=== PATIENT | female | born 1950 | race Caucasian/White ===

== ENCOUNTER 2020-12-04 15:33 | Inpatient (IN) | payer OTHER, MEDICAID, SELFPAY ==
[~2020-12-04] VITALS: Ht 170.2 cm; Wt 60.8 kg
[~2020-12-04 15:33] MED LIST: ALBU-136 IH; Acetaminophen/Hydrocodone Bi PO; DOCU-299 PO; MES60 PO
[2020-12-04 15:36] VITALS: BP 147/78
[2020-12-04] MEDS ORDERED: ALBUTEROL SULFATE/IPRATROPIU 3 ML SOL IH ONE (15:55)
[2020-12-04] MEDS ORDERED: KETOROLAC 30 MG/ML VIAL IVP ONE (15:55)
--- NOTE | 2020-12-04 16:15 | NUR ---
rt at bedside for abg.
--- NOTE | 2020-12-04 16:15 | NUR ---
swabs collected and given to phleb.
--- NOTE | 2020-12-04 16:23 | NUR ---
ATUL, FLU swab collected.
--- NOTE | 2020-12-04 16:29 | NUR ---
see complete assessment.
[2020-12-04 16:37] LABS: BASOPHILS % (AUTO) 0.4 % (0.0-2.0); HEMATOCRIT 32.4 % (36-48); HEMOGLOBIN 10.1 g/dL (12.0-16.0); LYMPHOCYTES # (AUTO) 0.6 K/uL (2.5-16.5); LYMPHOCYTES % (AUTO) 8.1 % (20.5-51.1); MEAN CORPUSCULAR HEMOGLOBIN 22 pg (27-31); MEAN CORPUSCULAR HGB CONC 31 g/dL (33-37); MEAN CORPUSCULAR VOLUME 69.8 fL (80-94); MONOCYTES # (AUTO) 0.1 K/uL (0.8-1.0); NEUTROPHILS # (AUTO) 6.4 K/uL (1.8-7.7); NEUTROPHILS % (AUTO) 90.5 % (42.2-75.2); PLATELET COUNT (AUTO) 282 K/uL (140-450); RED BLOOD CELL COUNT(AUTO) 4.63 MIL/uL (4.20-5.40); RED CELL DISTRIBUTION WIDTH 18.4 % (11.6-13.7); WHITE BLOOD COUNT (AUTO) 7.1 K/uL (4.8-10.8)
--- NOTE | 2020-12-04 16:45 | NUR ---
pt ambulated to bedside comode, steady gait.
--- NOTE | 2020-12-04 16:51 | NUR ---
urine collected and given to phleb in lab.
[2020-12-04 16:59] LABS: LACTATE DEHYDROGENASE 214 U/L (81-234)
[2020-12-04 17:00] LABS: ALBUMIN 2.7 g/dL (3.4-5.0); ANION GAP 9.1 (8-16); CARBON DIOXIDE 30.7 mmol/L (21-32); CREATININE 0.8 mg/dL (0.6-1.3); POTASSIUM 3.8 mmol/L (3.5-5.1); TOTAL BILIRUBIN 0.4 mg/dL (0.0-1.0)
[2020-12-04 17:11] LABS: PROTHROMBIN TIME 9.5 secs (10.8-13.4)
[2020-12-04] MEDS ORDERED: ASPIRIN 325 MG TAB PO ONE (17:20)
[2020-12-04] MEDS ORDERED: NACL 0.9% 1,000 ML IV ONE ×2 (17:20→20:20)
[2020-12-04 17:25] LABS: C-REACTIVE PROTEIN QUANT 0.2 mg/dL (0.0-0.9)
--- NOTE | 2020-12-04 17:34 | NUR ---
PT REPORTS BACK PAIN IS STILL 08/01. DR. GAYTAN NOTIFIED.
[2020-12-04] MEDS ORDERED: ONDANSETRON 4 MG/2 ML VIAL IVP ONE (17:35)
[2020-12-04] MEDS ORDERED: MORPHINE SULFATE 4 MG/ML SYR IVP ONE (17:35)
[2020-12-04 17:40] LABS: APPEARANCE,URINE SL CLOUDY (CLEAR); BILIRUBIN,URINE 1+ (NEGATIVE); BLOOD, URINE TRACE-I (NEGATIVE); COLOR,URINE DARK YELLOW (YELLOW); LEUKOCYTE ESTERASE ,URINE NEGATIVE (NEGATIVE); NITRITE, URINE NEGATIVE (NEGATIVE); UGLUCOSE NEGATIVE (NEGATIVE)
[2020-12-04 17:49] LABS: BARBITURATE, URINE NEGATIVE ng/ml (NEG <=200); BENZODIAZEPINE, URINE POSITIVE ng/mL (NEG <=200); CANNABINOID, URINE NEGATIVE ng/mL (NEG <=50); COCAINE, URINE NEGATIVE ng/mL (NEG <=300); OPIATE, URINE NEGATIVE ng/mL (NEG <=2000); PHENCYCLIDINE SCREEN,URINE NEGATIVE ng/mL (NEG <=25)
[2020-12-04 18:08] LABS: RBC,URINE 0-5 /HPF (0-5); WBC,URINE 0-5 /HPF (0-5)
[2020-12-04 18:09] LABS: URINE AMORPHOUS URATE 1+ /HPF (None Seen)
--- NOTE | 2020-12-04 18:20 | NUR ---
PT TAKEN TO CT VIA RVIRGILIO.
--- NOTE | 2020-12-04 18:45 | NUR ---
PT REPORTING DECREASED PAIN, 5/10
--- NOTE | 2020-12-04 19:13 | NUR ---
PT ENDORSED TO ROMAIN RENE FOR CONTINUITY OF CARE AT THIS TIME.
[2020-12-04] MEDS ORDERED: DILTIAZEM 25 MG/5 ML VIAL IVP ONE (19:20)
--- NOTE | 2020-12-04 19:30 | NUR ---
RECEIVED REPORT FROM EDILBERTO HOYOS FOR CONTINUITY OF CARE.
[2020-12-04] MEDS: NACL 0.9% 1,000 ML IV SCH (20:20)
--- NOTE | 2020-12-04 20:20 | NUR ---
PT LAYING IN BED IN NO ACUTE DISTRESS NOTED BREATHING EVEN AND UNLABORED AT THIS TIME. HEART RATE AT 85 WITH RAPID ACCELARATIONS OF RATE. RR 19. ON CONTINUES MONITORING. STATES SHE HAS 5/10 TOLERABLE LUMBOSACRAL PAIN DOES NOT REQUEST MEDS AT THIS TIME. WILL CONT TO MONITOR FOR ANY CHANGES.
[2020-12-04] MEDS ORDERED: DOCUSATE SODIUM 100 MG GELCAP PO PRN (20:55)
[2020-12-04] MEDS ORDERED: POTASSIUM CHLORIDE 10 MEQ TABER PO PRN (20:55)
[2020-12-04] MEDS ORDERED: PROMETHAZINE DM 6.25/15MG-5ML ORASYR PO PRN (20:55)
[2020-12-04] MEDS ORDERED: ACETAMINOPHEN 325 MG TAB PO PRN (20:55)
[2020-12-04] MEDS ORDERED: ZOLPIDEM 5 MG TAB PO PRN (20:55)
[2020-12-04] MEDS ORDERED: ONDANSETRON 4 MG/2 ML VIAL IM/IVP PRN (20:55)
[2020-12-04] MEDS ORDERED: NITROGLYCERIN 0.4 MG TAB SL PRN (20:55)
[2020-12-04] MEDS: METOPROLOL 25 MG TAB PO SCH (21:00)
[2020-12-04] MEDS ORDERED: CARV6.25 PO (21:01)
[2020-12-04] MEDS ORDERED: ALBU-118 INH (21:01)
[2020-12-04] MEDS ORDERED: MES60 PO (21:01)
[2020-12-04 21:15] LABS: BASOPHILS % (AUTO) 0.1 % (0.0-2.0); HEMATOCRIT 32.7 % (36-48); HEMOGLOBIN 10.1 g/dL (12.0-16.0); LYMPHOCYTES # (AUTO) 0.6 K/uL (2.5-16.5); LYMPHOCYTES % (AUTO) 7.6 % (20.5-51.1); MEAN CORPUSCULAR HEMOGLOBIN 22 pg (27-31); MEAN CORPUSCULAR HGB CONC 31 g/dL (33-37); MEAN CORPUSCULAR VOLUME 70.9 fL (80-94); MONOCYTES # (AUTO) 0.1 K/uL (0.8-1.0); NEUTROPHILS # (AUTO) 6.7 K/uL (1.8-7.7); NEUTROPHILS % (AUTO) 91.3 % (42.2-75.2); PLATELET COUNT (AUTO) 293 K/uL (140-450); RED BLOOD CELL COUNT(AUTO) 4.61 MIL/uL (4.20-5.40); RED CELL DISTRIBUTION WIDTH 18.4 % (11.6-13.7); WHITE BLOOD COUNT (AUTO) 7.4 K/uL (4.8-10.8)
--- NOTE | 2020-12-04 21:25 | NUR ---
PT WAS ASSISTED TO BEDSIDE COMMODE, TOLERATED WELL. PLACED ON IVF RUNNING AT 60 ML PER HR.
[2020-12-04 21:35] LABS: CHOL/HDL RATIO 2.6 (1-4.5); FREE T4 (FREE THYROXINE) 1.16 ng/dL (0.76-1.46); MAGNESIUM 2.1 mg/dL (1.8-2.4); PHOSPHORUS 3.5 mg/dL (2.5-4.9); THYROID STIMULATING HORMONE 0.2 uIU/mL (0.34-3.74)
[2020-12-04] MEDS ORDERED: PYRIDOSTIGMINE 60 MG TAB PO SCH (22:00)
[2020-12-04] MEDS ORDERED: cefTRIAXone 1,000 MG VIAL ONE (22:22)
[2020-12-04] MEDS: DILTIAZEM 30 MG TAB PO SCH (22:35)
--- NOTE | 2020-12-04 22:45 | NUR ---
Patient will be admitted to care of DR. FELDMAN. Admited to TELEMETRY. Will go to room 111B. Belongings list completed. Report given to GÉNESIS RN FOR CONTINUITY OF CARE. ALL COVID PRECAUTIONS IN PLACE.
--- NOTE | 2020-12-04 23:00 | NUR ---
ADMITTED 70 Y/O FEMALE, FROM HOME, AOX4, ON ROOM AIR, AMBULATE W/ASSIST, INTACT SKIN, MRSA TAKEN, V/S TAKEN, WNL, ORIENTED TO ROOM, SAFETY MEASURES IN PLACE, CALL LIGHT WITHIN REACH.
[2020-12-04] MEDS: HYDROcodone/APAP 7.5/325 MG 1 TAB PO PRN (23:37)
--- NOTE | 2020-12-05 01:15 | NUR ---
PAGED DR. FELDMAN FOR TROP 0.163, AWAITING CALL BACK. PT IS NOT IN DISTRESS.
--- NOTE | 2020-12-05 01:45 | NUR ---
LEFT VOICEMAIL TO DR. FELDMAN.
--- NOTE | 2020-12-05 03:30 | NUR ---
DR. FELDMAN ORDERED LOVENOX SQ BID AND GIVE ONCE NOW. NOTED AND CARRIED OUT. PT IS NOT IN DISTRESS, CALL LIGHT WITHIN REACH.
[2020-12-05] MEDS ORDERED: LOVENOX 1MG/KG Q12H SUBQ ONE (03:35)
[2020-12-05] MEDS ORDERED: ENOXAPARIN 60 MG/0.6 ML SYR SUBQ SCH ×2 (03:40→09:00)
[2020-12-05 04:00] VITALS: BP 109/72
[2020-12-05] MEDS: HYDROcodone/APAP 7.5/325 MG 1 TAB PO PRN ×3 (06:27→14:52)
--- NOTE | 2020-12-05 07:30 | NUR ---
PT STABLE, NO SOB, NO DISTRESS, NO ACUTE CHANGES THE WHOLE SHIFT, BEDSIDE ENDORSEMENT GIVEN TO AM SHIFT RN FOR CONTINUITY OF CARE.
--- NOTE | 2020-12-05 07:30 | NUR ---
RECEIVED ENDORSEMENT FROM DIRECTOR OF ONLINE EDUCATION, Awake,alert, orientedx4, breathing spontaneously at room air, not in distress, WITH ONGOING IV FLUID WITH 0.9% NS AT 60ML/HOUR AT RT AC G 20 IV CANNULA NOTED. SAFETY MEASURESN PLACE AND CONTINUE MONITOR
[2020-12-05 08:00] VITALS: BP 105/74
[2020-12-05 08:46] LABS: BASOPHILS % (AUTO) 0.3 % (0.0-2.0); EOSINOPHILS % (AUTO) 0.2 % (0.0-4.0); HEMATOCRIT 28.2 % (36-48); HEMOGLOBIN 8.8 g/dL (12.0-16.0); LYMPHOCYTES # (AUTO) 1.1 K/uL (2.5-16.5); LYMPHOCYTES % (AUTO) 22.5 % (20.5-51.1); MEAN CORPUSCULAR HEMOGLOBIN 22 pg (27-31); MEAN CORPUSCULAR HGB CONC 31 g/dL (33-37); MEAN CORPUSCULAR VOLUME 70.7 fL (80-94); MONOCYTES # (AUTO) 0.5 K/uL (0.8-1.0); NEUTROPHILS # (AUTO) 3.4 K/uL (1.8-7.7); PLATELET COUNT (AUTO) 181 K/uL (140-450); RED BLOOD CELL COUNT(AUTO) 3.99 MIL/uL (4.20-5.40); RED CELL DISTRIBUTION WIDTH 18.3 % (11.6-13.7)
[2020-12-05 08:57] LABS: ANION GAP 10.4 (8-16); CARBON DIOXIDE 29.3 mmol/L (21-32); CREATININE 0.7 mg/dL (0.6-1.3); POTASSIUM 3.7 mmol/L (3.5-5.1)
--- NOTE | 2020-12-05 09:14 | NUR ---
PATIENT HAS BEEN SCREENED AND CATEGORIZED MODERATE NUTRITION RISK. PATIENT WILL BE SEEN WITHIN 3-5 DAYS OF ADMISSION. 12/07/20 12/09/[address]
--- NOTE | 2020-12-05 09:17 | NUR ---
TROP I- 0.121, DR FELDMAN MADE AWARE TRENDING DOWN
[2020-12-05] MEDS: DILTIAZEM 30 MG TAB PO SCH ×3 (09:56→17:08)
[2020-12-05] MEDS: ECOTRIN 81 MG TABEC PO SCH (09:56)
[2020-12-05] MEDS: METOPROLOL 25 MG TAB PO SCH (09:57)
[2020-12-05] MEDS: PANTOPRAZOLE 40 MG TABEC PO SCH (09:57)
[2020-12-05] MEDS: lisinopriL 5 MG TAB PO SCH (09:58)
--- NOTE | 2020-12-05 10:01 | NUR ---
FULLY AWAKE AND ALERT, DUE MEDICATION GIVEN. APPARENTLY COMPLAINED OF BACK PAIN 03/31, NORCO 1 TAB ORDERED PRN GIVEN
--- NOTE | 2020-12-05 10:10 | NUR ---
SOCIAL WORK NOTE: SW WAS UNABLE TO MEET PATIENT AT BEDSIDE. SW CONTACTED PATIENT'S DAUGHTER SUSHMA LANDIN [phone] TO COMPLETE ASSESSMENT. SW LEFT VM AND WILL FOLLOW UP.
[2020-12-05 12:00] VITALS: BP 91/56
[2020-12-05] MEDS: NACL 0.9% 1,000 ML IV SCH (13:10)
--- NOTE | 2020-12-05 13:12 | NUR ---
FULLY AWAKE AND ALERT, DUE MEDICATION GIVEN
--- NOTE | 2020-12-05 14:51 | NUR ---
COMPLAINED OF BACK PAIN 05/01, NORCO 1 TAB GIVEN ORDERED PRN
--- NOTE | 2020-12-05 15:43 | NUR ---
DC PLANNIN YRS OLD FEMALE PATIENT WAS ADMITTED FROM HOME WITH A DX OF ELEVATED TROPONIN, CHEST PAIN AND NEW ONSET OF A-FIB. TROP 0.163 , 0.121 . COVID TEST RAPID NEGATIVE. ADMINISTERED ROCEPHIN IV ABX. CONSULTED WITH NEUROLOGIST AND STAGE TECHNICIAN DC PLAN TO GO HOME WHEN STABLE CM TO FOLLOW
[2020-12-05 16:00] VITALS: BP 92/60
--- NOTE | 2020-12-05 16:20 | NUR ---
TRANSFERRED TO ROOM A126B, NOT IN DISTRESS NOTED
[2020-12-05] MEDS: ATORVASTATIN 20 MG TAB PO SCH (17:08)
[2020-12-05] MEDS: PYRIDOSTIGMINE 60 MG TAB PO SCH ×2 (17:09→21:00)
--- NOTE | 2020-12-05 18:01 | NUR ---
FULLY AWAKE AND ALERT, DINNER SERVED
--- NOTE | 2020-12-05 19:31 | NUR ---
ENDORSED TO MEDICAL TECHNOLOGIST MICROBIOLOGY IN STABLE CONDITION FOR CONTINUITY OF CARE
[2020-12-05 20:00] VITALS: BP 112/56
[2020-12-05] MEDS: ENOXAPARIN 60 MG/0.6 ML SYR SUBQ SCH (21:00)
[2020-12-05] MEDS: carvediloL 6.25 MG TAB PO SCH (21:00)
[2020-12-05] MEDS: AMIODARONE 200 MG TAB PO SCH (21:00)
--- NOTE | 2020-12-05 22:30 | NUR ---
C/O HEADACHE AND BACK PAIN - HAS ELEVATEC TROPONIN - A FIB ON TELE MONITOR . O2 SAT WNL . WILL REFER TO DR. FELDMAN . WILL INFORM DR. FELDMAN COREG AND CORDARONE NOT GIVEN DUE TO LOW DBP .
--- NOTE | 2020-12-05 23:00 | NUR ---
NARCO GIVEN Addendum: 12/06/20 at 0614 by Tatyana James RN PER DR. FELDMAN GIVE NITRO STAT BUT PT. REFUSED - PT. DESCRIBING AGAIN THE CHAC . OF PAIN SHE SAID THE CHEST PAIN DOES NOT BOTHERS HER A LOT BUT THE BACK PAIN SHE SAID IT IS ALMOST CHRONIS PAIN BECAUSE SHE HAD FALL HX . - WILL INFORM DR. FELDMAN ABOUT THE REFUSAL OF NITROSTAT.
[2020-12-06] VITALS: BP 110/60
--- NOTE | 2020-12-06 | NUR ---
FOR STAT EKG AND TROPONIN ORDERED BY DR. FELDMAN . WILL RELAY THE RESULT
[2020-12-06 04:00] VITALS: BP 111/60
--- NOTE | 2020-12-06 04:00 | NUR ---
C/O BACK PAIN - ON TEL EMONITOR - O2 SAT WNL - WILL MEDICATE - AT THIS TIME RELAYED TO DR. FELDMAN THE RESULT OF RPT. EKG AND ALSO INFORMED HIM POT. REFUSED FOR NITRO STAT - NO RESPONSE TO DR. FELDMAN - RPRT TROPONIN - TRENDING DOWN .
[2020-12-06] MEDS: HYDROcodone/APAP 7.5/325 MG 1 TAB PO PRN ×5 (04:43→22:07)
--- NOTE | 2020-12-06 06:00 | NUR ---
NO COMPLAIN MADE - HE SAID THE PAIN IS REDUCED . ON TELE MONITOR - CALL LIGHT WITHIN REACH .
[2020-12-06] MEDS: NACL 0.9% 1,000 ML IV SCH ×2 (06:20→23:00)
[2020-12-06 06:24] LABS: BASOPHILS % (AUTO) 0.3 % (0.0-2.0); EOSINOPHILS % (AUTO) 0.4 % (0.0-4.0); HEMATOCRIT 29.5 % (36-48); HEMOGLOBIN 9.1 g/dL (12.0-16.0); LYMPHOCYTES # (AUTO) 1.3 K/uL (2.5-16.5); LYMPHOCYTES % (AUTO) 26.2 % (20.5-51.1); MEAN CORPUSCULAR HEMOGLOBIN 22 pg (27-31); MEAN CORPUSCULAR HGB CONC 31 g/dL (33-37); MEAN CORPUSCULAR VOLUME 70.9 fL (80-94); MONOCYTES # (AUTO) 0.4 K/uL (0.8-1.0); MONOCYTES % (AUTO) 7.7 % (1.7-9.3); NEUTROPHILS # (AUTO) 3.4 K/uL (1.8-7.7); NEUTROPHILS % (AUTO) 65.4 % (42.2-75.2); PLATELET COUNT (AUTO) 178 K/uL (140-450); RED BLOOD CELL COUNT(AUTO) 4.15 MIL/uL (4.20-5.40); RED CELL DISTRIBUTION WIDTH 18.1 % (11.6-13.7); WHITE BLOOD COUNT (AUTO) 5.1 K/uL (4.8-10.8)
[2020-12-06 06:45] LABS: CREATININE 0.6 mg/dL (0.6-1.3); POTASSIUM 3.8 mmol/L (3.5-5.1)
--- NOTE | 2020-12-06 07:23 | NUR ---
ENDORSED - PT - STABLE .
--- NOTE | 2020-12-06 07:24 | NUR ---
RECEIVED ENDORSEMENT FROM PRESSER ALL AROUND, AWAKE, ALERT,[id number], BREATHING SPONTANEOUSLY AT ROOM AIR, WITH ONGOING IV FLUID WITH 0.9% NS AT 60ML/HOUR AT RT AC G 20 IV CANNULA NOTED. SAFETY MEASURES IN PLACE AND CONTINUE MONITOR
[2020-12-06 07:33] LABS: ANION GAP 9.7 (8-16); CARBON DIOXIDE 31.1 mmol/L (21-32)
[2020-12-06 08:00] VITALS: BP 103/80
[2020-12-06 08:46] LABS: T4 (THYROXINE) 6.6 ug/dL (4.5-12.0)
[2020-12-06] MEDS: carvediloL 6.25 MG TAB PO SCH ×2 (08:46→22:02)
[2020-12-06] MEDS: ENOXAPARIN 60 MG/0.6 ML SYR SUBQ SCH (08:47)
[2020-12-06] MEDS: PANTOPRAZOLE 40 MG TABEC PO SCH (08:48)
[2020-12-06] MEDS: DILTIAZEM 30 MG TAB PO SCH ×3 (08:49→17:51)
[2020-12-06] MEDS: predniSONE 20 MG TAB PO SCH (08:49)
[2020-12-06] MEDS: PYRIDOSTIGMINE 60 MG TAB PO SCH ×4 (08:51→22:02)
[2020-12-06] MEDS: CALCIUM CARB/VIT-D 500 MG/200 IU 1 TAB PO SCH ×3 (08:52→17:44)
[2020-12-06] MEDS: ECOTRIN 81 MG TABEC PO SCH (08:53)
[2020-12-06] MEDS: AMIODARONE 200 MG TAB PO SCH ×2 (08:53→22:01)
[2020-12-06] MEDS: lisinopriL 5 MG TAB PO SCH (08:54)
--- NOTE | 2020-12-06 08:55 | NUR ---
FULLY AWAKE AND ALERT, DUE MEDICATION GIVEN, APPARENTLY COMPLAINED OF BACK PAIN 07/01, NORCO 1 TAB ORDERED PRN GIVEN
--- NOTE | 2020-12-06 11:43 | NUR ---
ECHO DONE AT BEDSIDE AND SPINE XRAY DONE
[2020-12-06 12:00] VITALS: BP 111/65
--- NOTE | 2020-12-06 13:24 | NUR ---
FULL AWAKE AND ALERT, COMPLAINED OF BACK PAIN 07/01 NORCO 1 TAB ORDERED PRN AND DUE MEDICATION GIVEN
[2020-12-06 16:00] VITALS: BP 101/56
--- NOTE | 2020-12-06 16:48 | NUR ---
VITAL SIGNS STABLE, APPARENTLY ASLEEP NOT IN DISTRESS NOTED
--- NOTE | 2020-12-06 17:45 | NUR ---
COMPLAINED OF BACK PAIN 05/31, NORCO 1 TAB ORDERED PRN AND DUE MEDICATION GIVEN
[2020-12-06] MEDS: ATORVASTATIN 20 MG TAB PO SCH (17:48)
[2020-12-06] MEDS ORDERED: MORPHINE SULFATE 2 MG/ML SYR IVP PRN (17:55)
--- NOTE | 2020-12-06 18:45 | NUR ---
MINIMAL PAIN CLAIMED, DINNER SERVED
--- NOTE | 2020-12-06 19:00 | NUR ---
PATIENT RECEIVED IN BED ALERT AND RESPONSIVE. PATIENT VERBALIZED NEEDS AND CONCERNS TO RN. DISCUSSED WITH PATIENT RN PLAN OF CARE. DISCUSSED FALL AND SAFETY INTERVENTIONS, MEDICATION REGIMEN AND RN PLAN OF CARE. PATIENT RECEPTIVE TO RN PLAN OF CARE. VSS. NO ACUTE DISTRESS NOTED.
--- NOTE | 2020-12-06 19:30 | NUR ---
ENDORSED TO PRIMARY CARE PEDIATRICIAN IN STABLE CONDITION FOR CONTINUITY OF CARE
[2020-12-06 20:00] VITALS: BP 95/60
[2020-12-07] VITALS: BP 90/66
--- NOTE | 2020-12-07 | NUR ---
Patient sleeping during rounding. Fall and safety precautions maintained. VSS. Medications administered as ordered. No acute distress noted.
[2020-12-07 04:00] VITALS: BP 100/56
--- NOTE | 2020-12-07 04:00 | NUR ---
Patient sleeping during rounding, easily aroused. VSS, No acute distress noted
[2020-12-07] MEDS: HYDROcodone/APAP 7.5/325 MG 1 TAB PO PRN ×3 (06:15→15:43)
--- NOTE | 2020-12-07 07:25 | NUR ---
RECEIVED PATIENT FROM NIGHT NURSE. PATIENT IN BED SLEEPING, CHEST NOTED RISING. NO ACUTE S/S DISTRESS AT THIS TIME. RAC 20G INFUSING NS 60ML/HR. HOB ELEVATED. SAFETY MEASURES IN PLACE. CALL LIGHT WITHIN REACH. WILL CONTINUE TO MONITOR.
[2020-12-07 08:00] VITALS: BP 114/72
[2020-12-07] MEDS: ECOTRIN 81 MG TABEC PO SCH (09:52)
[2020-12-07] MEDS: PANTOPRAZOLE 40 MG TABEC PO SCH (09:52)
[2020-12-07] MEDS: ENOXAPARIN 60 MG/0.6 ML SYR SUBQ SCH (09:52)
[2020-12-07] MEDS: AMIODARONE 200 MG TAB PO SCH (09:53)
[2020-12-07] MEDS: carvediloL 6.25 MG TAB PO SCH (09:53)
[2020-12-07] MEDS: lisinopriL 5 MG TAB PO SCH (09:53)
[2020-12-07] MEDS: CALCIUM CARB/VIT-D 500 MG/200 IU 1 TAB PO SCH ×3 (09:53→17:12)
[2020-12-07] MEDS: predniSONE 20 MG TAB PO SCH (09:54)
[2020-12-07] MEDS: DILTIAZEM 30 MG TAB PO SCH ×3 (09:54→17:12)
[2020-12-07] MEDS: PYRIDOSTIGMINE 60 MG TAB PO SCH ×3 (09:54→17:12)
--- NOTE | 2020-12-07 10:15 | NUR ---
PATIENT IN BED AWAKE AND ALERT. MORNING ROUTINE MEDICATIONS GIVEN. PATIENT TOLERATED WELL. RAC 20G INFUSING NS 60ML/HR. PATIENT C/O PAIN AND WILL MEDICATE APPROPRIATELY. RESP EVEN AND UNLABORED ON ROOM AIR. NO NOTED ACUTE S/S DISTRESS AT THIS TIME. PLAN OF CARE DISCUSSED. PATIENT VERBALIZED UNDERSTANDING. CALL LIGHT WITHIN REACH. WILL CONTINUE TO MONITOR.
[2020-12-07 12:00] VITALS: BP 95/54
--- NOTE | 2020-12-07 12:38 | NUR ---
PATIENT IN BED EATING LUNCH. NO NOTED ACUTE S/S DISTRESS. ABLE TO MAKE NEEDS KNOWN. CALL LIGHT WITHIN REACH. WILL CONTINUE TO MONITOR.
[2020-12-07] MEDS ORDERED: APIX2.5 PO (13:17)
[2020-12-07] MEDS ORDERED: MES60 PO (13:17)
[2020-12-07] MEDS ORDERED: PRED20TA5 PO (13:17)
[2020-12-07] MEDS ORDERED: AMIO200T66 PO (13:17)
[2020-12-07] MEDS ORDERED: PANT40EC PO (13:17)
[2020-12-07] MEDS ORDERED: HYDR-5080 PO (13:20)
[2020-12-07] MEDS: NACL 0.9% 1,000 ML IV SCH (15:40)
--- NOTE | 2020-12-07 15:45 | NUR ---
NORCO GIVEN FOR PAIN. PATIENT AWAKE AND ALERT. ABLE TO FOLLOW COMMANDS. NEEDS ARE MET. CALL LIGHT WITHIN REACH. WILL CONTINUE TO MONITOR.
[2020-12-07 16:00] VITALS: BP 109/52
[2020-12-07] MEDS: ATORVASTATIN 20 MG TAB PO SCH (17:12)
[2020-12-07 18:14] VITALS: BP 109/52
--- NOTE | 2020-12-07 19:20 | NUR ---
PATIENT LEFT DISCHARGED HOME WITH FAMILY. PATIENT LEFT WITH ALL PERSONAL BELONGINGS. DISCHARGE INSTRUCTIONS GIVEN, PATIENT VERBALIZED UNDERSTANDING. PATIENT LEFT IN STABLE CONDITION.
== END 2020-12-07 19:20 | disposition home or self-care (01) | DRG 309 ==
LOC: MED 15:33 → MTU 20:19 → MMU 12-05 16:52
PROVIDERS: ADMIT Family Medicine; ATTEND Family Medicine
DX: I48.91 Unspecified atrial fibrillation (principal); I24.8 Other forms of acute ischemic heart disease; G70.00 Myasthenia gravis without (acute) exacerbation; Z20.822 Contact with and (suspected) exposure to COVID-19; I10 Essential (primary) hypertension; Z60.2 Problems related to living alone; J44.9 Chronic obstructive pulmonary disease, unspecified; E78.2 Mixed hyperlipidemia; M54.9 Dorsalgia, unspecified; K25.9 Gastric ulcer, unspecified as acute or chronic, without hemorrhage or perforation; Z79.899 Other long term (current) drug therapy; Z85.41 Personal history of malignant neoplasm of cervix uteri; Z90.710 Acquired absence of both cervix and uterus; Z80.1 Family history of malignant neoplasm of trachea, bronchus and lung; E03.9 Hypothyroidism, unspecified
CPT/HCPCS: 36415; 36600; 71045; 71275; 72072; 80048; 80053; 80305; 81001; 82150; 82550; 82728; 82803; 83036; 83605; 83615; 83690; 83735; 83880; 84100; 84436; 84439; 84443; 84479; 84484; 85025; 85379; 85384; 85610; 85730; 86140; 87040; 87081; 87086; 87804; 93005; 94640; 96374; 97110; 97116; 97161-GP; 97530; 99291; J0696; J1650; J1885; J2270; J2405; J3490; J7030; J7060; J7512; Q9967

== ENCOUNTER 2021-01-06 13:29 | Inpatient (IN) | payer OTHER, MEDICAID, SELFPAY ==
[~2021-01-06] VITALS: Ht 172.7 cm; Wt 63.0 kg
[~2021-01-06 13:29] MED LIST changes: +ALBU-118 INH; +AMIO200T66 PO; +APIX2.5 PO; +CARV6.25 PO; +HYDR-5080 PO; +PANT40EC PO; +PRED20TA5 PO
[2021-01-06 13:43] VITALS: BP 133/91
--- NOTE | 2021-01-06 13:59 | NUR ---
PATIENT W/C ASSISTED TO BED 9
[2021-01-06] MEDS ORDERED: HYDROcodone/APAP 5/325 MG 1 TAB TAB PO STA (15:27)
[2021-01-06] MEDS ORDERED: ASPIRIN 325 MG TAB PO STA (15:27)
[2021-01-06 15:47] LABS: BASOPHILS % (AUTO) 0.3 % (0.0-2.0); HEMATOCRIT 32.6 % (36-48); HEMOGLOBIN 10.2 g/dL (12.0-16.0); LYMPHOCYTES # (AUTO) 0.3 K/uL (2.5-16.5); LYMPHOCYTES % (AUTO) 5.6 % (20.5-51.1); MEAN CORPUSCULAR HEMOGLOBIN 22 pg (27-31); MEAN CORPUSCULAR HGB CONC 31 g/dL (33-37); MEAN CORPUSCULAR VOLUME 69.3 fL (80-94); MONOCYTES % (AUTO) 0.9 % (1.7-9.3); NEUTROPHILS # (AUTO) 5.1 K/uL (1.8-7.7); NEUTROPHILS % (AUTO) 93.2 % (42.2-75.2); PLATELET COUNT (AUTO) 224 K/uL (140-450); RED BLOOD CELL COUNT(AUTO) 4.71 MIL/uL (4.20-5.40); RED CELL DISTRIBUTION WIDTH 19.2 % (11.6-13.7); WHITE BLOOD COUNT (AUTO) 5.5 K/uL (4.8-10.8)
[2021-01-06] MEDS ORDERED: NITROGLYCERIN 0.4 MG TAB SL ONE (15:55)
--- NOTE | 2021-01-06 16:00 | NUR ---
Patient taken to xray via gurney
[2021-01-06 16:03] LABS: ALBUMIN 2.8 g/dL (3.4-5.0); ANION GAP 8.4 (8-16); CARBON DIOXIDE 32.5 mmol/L (21-32); CREATININE 0.7 mg/dL (0.6-1.3); POTASSIUM 3.9 mmol/L (3.5-5.1); TOTAL BILIRUBIN 0.4 mg/dL (0.0-1.0)
[2021-01-06] MEDS ORDERED: MORPHINE SULFATE 4 MG/ML SYR IVP STA (17:20)
[2021-01-06] MEDS ORDERED: ONDANSETRON 4 MG/2 ML VIAL IVP STA (17:20)
[2021-01-06] MEDS ORDERED: LORazepam 2 MG/ML VIAL IM/IVP PRN (17:50)
[2021-01-06] MEDS ORDERED: ONDANSETRON 4 MG/2 ML VIAL IVP PRN (17:50)
[2021-01-06] MEDS ORDERED: ZOLPIDEM 5 MG TAB PO PRN (17:50)
[2021-01-06] MEDS ORDERED: DOCUSATE SODIUM 100 MG GELCAP PO PRN (17:50)
[2021-01-06] MEDS ORDERED: ACETAMINOPHEN 325 MG TAB PO PRN (17:50)
[2021-01-06 18:09] LABS: PROTHROMBIN TIME 9.5 secs (10.8-13.4)
[2021-01-06 18:20] LABS: FREE T4 (FREE THYROXINE) 1.16 ng/dL (0.76-1.46); MAGNESIUM 2.1 mg/dL (1.8-2.4); PHOSPHORUS 3.7 mg/dL (2.5-4.9); THYROID STIMULATING HORMONE 0.26 uIU/mL (0.34-3.74)
--- NOTE | 2021-01-06 19:23 | NUR ---
HAND-OFF REPORT GIVEN TO ELIDIA HOYOS FOR CONTINUATION OF NURSING CARE
--- NOTE | 2021-01-06 19:23 | NUR ---
PT WAS FOUND AWAKE IN SEMI-DENT'S POSITION IN BED. PT STATES NO MEDICAL COMPLAINTS AND NO DISTRESS. BED IS LOCKED IN LOWEST POSITION WITH 2 SIDE RAILS UP FOR SAFETY.
--- NOTE | 2021-01-06 19:23 | NUR ---
RECEIVED TRANSFER OF CARE REPORT FROM SLIM HOYOS FOR CONTINUATION OF CARE.
--- NOTE | 2021-01-06 19:23 | NUR ---
Patient will be admitted to care of DR PETERSON. Admited to TELEMETRY. Will go to room 120A. Belongings list completed. Report to ALYX HOYOS.
--- NOTE | 2021-01-06 19:54 | NUR ---
RECEIVED REPORT FROM ELIDIA HOYOS. PT BROUGHT IN VIA [place] AMBULATED FROM [place] TO BED WITH UNSTEADY GAIT WITH NURSE ASSIST. PT WITH INCREASED SOB D/T ACTIVITY. PT IS ON 4L NC SAT WELL 96% LUNG SOUNDS ARE WITH MINIMAL WHEEZING. PT IS AAOX4 FROM HOME. C/O SOB. WAS PREVIOUSLY IN HOSPITAL X 1 MO AGO FOR C/C SOB. SKIN IS INTACT WITH SOME SCRATCHES ON BUE FROM HER DOGS ALREADY SCABBED. NO EDEMA NOTED. ABD IS SOFT. BOWEL SOUNDS ACTIVE X4. LBM X 3 DAYS AGO PER PT HAS NOT BEEN EATING WELL D/T SOB AND TROUBLE SWALLOWING FROM HER HX OF MYESTHESIA GRAVIS. MRSA SWAB OBTAIN. POC DISCUSSED WITH PT. IV ON LAC 20G CONNECTED IVF PER ORDERS. ORIENTED PT TO ROOM,STAFF, AND CALL LIGHT. OBTAINED BEDSIDE COMMODE FOR PT. EDUCATED PT TO CALL FOR ASSISTANCE PT VERBALIZED UNDERSTANDING. BED ALARM ON. ALL SAFETY MEASURES ARE IN PLACE. WILL CONTINUE TO MONITOR.
--- NOTE | 2021-01-06 19:56 | NUR ---
PT WAS TRANSFERRED TO ROOM 120A. RECEIVING NURSE ALYX RN WAS AT BEDSIDE.
[2021-01-06 20:00] VITALS: BP 122/89
[2021-01-06] MEDS: NACL 0.9% 1,000 ML IV SCH (20:07)
[2021-01-06] MEDS: MORPHINE SULFATE 2 MG/ML SYR IVP PRN (20:14)
--- NOTE | 2021-01-06 21:28 | NUR ---
PT RESTING IN BED TALKING ON CELLPHONE. NO S/S OF DISTRESS. BED ALARM ON.
[2021-01-07] VITALS: BP 143/86
--- NOTE | 2021-01-07 | NUR ---
VITAL SIGNS ARE WITHIN NORMAL LIMITS. GAVE PT TEA PER REQUEST. ALL NEEDS MET. CALL LIGHT IS WITHIN REACH.
[2021-01-07] MEDS: MORPHINE SULFATE 2 MG/ML SYR IVP PRN ×5 (01:15→18:27)
--- NOTE | 2021-01-07 01:15 | NUR ---
ADMIN PRN MORPHINE FOR SEVERE BACK PAIN 10/10 PT TOLERATED WELL. ALL NEEDS MET. CALL LIGHT IS WITHIN REACH.
--- NOTE | 2021-01-07 02:31 | NUR ---
ROUNDS MADE. PT APPEARS TO BE SLEEPING. CHEST RISE AND FALL NOTED. CALL LIGHT IS WITHIN REACH.
[2021-01-07 04:00] VITALS: BP 133/72
--- NOTE | 2021-01-07 04:00 | NUR ---
VITAL SIGNS ARE WITHIN NORMAL LIMITS. ALL SAFETY MEASURES ARE IN PLACE. CALL LIGHT IS WITHIN REACH
--- NOTE | 2021-01-07 05:13 | NUR ---
C/C BACK PAIN 10/10 ADMIN PRN MORPHINE. PT TOLERATED WELL. ALL NEEDS MET. CALL LIGHT IS WITHIN REACH.
[2021-01-07 06:00] LABS: BASOPHILS % (AUTO) 0.1 % (0.0-2.0); EOSINOPHILS % (AUTO) 0.1 % (0.0-4.0); HEMATOCRIT 27.7 % (36-48); HEMOGLOBIN 8.6 g/dL (12.0-16.0); LYMPHOCYTES # (AUTO) 0.9 K/uL (2.5-16.5); LYMPHOCYTES % (AUTO) 23.4 % (20.5-51.1); MEAN CORPUSCULAR HEMOGLOBIN 22 pg (27-31); MEAN CORPUSCULAR HGB CONC 31 g/dL (33-37); MONOCYTES # (AUTO) 0.4 K/uL (0.8-1.0); MONOCYTES % (AUTO) 9.1 % (1.7-9.3); NEUTROPHILS # (AUTO) 2.6 K/uL (1.8-7.7); NEUTROPHILS % (AUTO) 67.3 % (42.2-75.2); PLATELET COUNT (AUTO) 144 K/uL (140-450); RED BLOOD CELL COUNT(AUTO) 3.95 MIL/uL (4.20-5.40); RED CELL DISTRIBUTION WIDTH 19.1 % (11.6-13.7); WHITE BLOOD COUNT (AUTO) 3.9 K/uL (4.8-10.8)
[2021-01-07 06:15] LABS: ANION GAP 4.4 (8-16); CARBON DIOXIDE 33.7 mmol/L (21-32); CREATININE 0.6 mg/dL (0.6-1.3); POTASSIUM 3.1 mmol/L (3.5-5.1)
[2021-01-07 06:17] LABS: MAGNESIUM 1.8 mg/dL (1.8-2.4); PHOSPHORUS 3.3 mg/dL (2.5-4.9)
[2021-01-07] MEDS: NACL 0.9% 1,000 ML IV SCH ×3 (06:37→23:52)
--- NOTE | 2021-01-07 07:29 | NUR ---
GAVE BEDSIDE REPORT TO DAY RN. PT ENDORSED IN STABLE CONDITION.
--- NOTE | 2021-01-07 07:45 | NUR ---
RECEIVED BEDSIDE REPORT FROM NIGHTSHIFT NURSE FOR CONTINUITY OF CARE.
[2021-01-07 08:00] VITALS: BP 145/63
[2021-01-07] MEDS ORDERED: POTASSIUM CHLORIDE 40 MEQ, LIDOCAINE MPF 1% 25 MG in NACL 0.9% 250 ML IV SCH (09:00)
--- NOTE | 2021-01-07 09:29 | NUR ---
PATIENT HAS BEEN SCREENED AND CATEGORIZED HIGH NUTRITION RISK. PATIENT WILL BE SEEN WITHIN 1-2 DAYS OF ADMISSION. 01/07/21-01/08/[address]
--- NOTE | 2021-01-07 09:35 | NUR ---
ADMINISTERED PRESCRIBED MEDS AND PRN MEDS FOR 8/10 PAIN PER MD ORDER. PATIENT TOLERATED WELL. MEDICATION EDUCATION PROVIDED. PATIENT VERBALIZED UNDERSTANDING. SAFETY MEASURES IN PLACE. WILL CONTINUE TO MONITOR.
--- NOTE | 2021-01-07 11:10 | NUR ---
NIF completed. -26 cm H20 via air cushion mask.
[2021-01-07 12:00] VITALS: BP 137/89
--- NOTE | 2021-01-07 12:40 | NUR ---
DC PLANNIN YRS OLD FEMALE PATIENT WAS ADMITTED FROM HOME WITH A DX OF CHEST PAIN. 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 PT REGULARLY RECEIVES IVIG FOR HER MYESTHESIA GRAVIS. CONSULTED WITH NEUROLOGIST. CALLED [facility] TO TRANSFER TO CONTRACTED FACILITY HOWEVER, UNABLE TO REACH CHARY BECAUSE OF THE PROBLEM OF WEATHER AND POWER OUTRAGE IN [place]. SPOKE WITH MICHAEL STATED ISAIAS IS COVERING I CALLED ISAIAS AT [phone] STILL NO ANSWERING SERVICE. CM TO FOLLOW Addendum: 01/07/21 at 1434 by Melanie Lyman RN DC PLANNING: SEVERAL ATTEMPT TO REACH THE CM CHARY [phone] AND ISAIAS [phone] BUT UNABLE TO LEAVE A MESSAGE CALLED BACK MICHAEL AND MICHAEL PROVIDED ME SYSTEMS ANALYST [employer]OH[employer]'S NUMBER CALLED ROHAN [phone] LEFT A MESSAGE STATED PT IS STABLE FOR TRANSFER TO THE CONTRACTED FACILITY. CM TO FOLLOW Addendum: 01/08/21 at 1039 by Farideh Love CM LIBORIO CROSS TIE CUTTER: FAXED ORDER FOR HOME O2 TO [facility]. SPOKE TO COORDINATOR MICHAEL SHE WILL WORK ON THE ORDER. SHE STATED THAT RADHA DIEZ'S PHONE IS NOT WORKING AT THIS TIME BECAUSE THERE IS A POWER OUTAGE IN [place]. Addendum: 01/08/21 at 1132 by Farideh Love LIBORIO CROSS TIE CUTTER: SPOKE TO COORDINATOR MICHAEL REGARDING TRANSFER TO CONTRACTED FACILITY. SHE ASKED THAT WE FOLLOW UP WITH [facility]E [phone] BECAUSE CHARY'S PHONE IS NOT WORKING RIGHT NOW. CALLED J[facility]E SHE DID NOT ANSWER, LEFT A VOICEMAIL. Addendum: 01/08/21 at 1216 by Farideh Love CM LIBORIO NEALNER: FOLLOWED UP WITH [facility]. CALL WAS TRANSFERRED TO . [facility]E WILL CONTACT US BACK REGARDING CONTRACTED FACILITY. Addendum: 01/08/21 at 1341 by Melanie Lyman RN DC PLANNING: SPOKE WITH SPENCER GARCIA AT [facility] REGARDING THE TRANSFER TO CONTRACTED FACILITY FOR IVIG TREATMENT. PER SPENCER WILL WORK ON IT AND CALL BACK. RADHA TO FOLLOW Addendum: 01/08/21 at 1544 by Farideh Love CM DC CROSS TIE CUTTER: PATIENTS HOME 02 WILL BE DELIVERED TODAY. Addendum: 01/09/21 at 1438 by Farideh Love CM LIBORIO ELIZABETH: CALLED [facility] TO FOLLOW UP, NO ANSWER LEFT A VOICEMAIL. Addendum: 01/10/21 at 1358 by Kaia Senior CM RADHA VALLADARES MADE AWARE THAT PATIENT WILL BE DISCHARGE TODAY. SHE PROVIDED ME WITH AUTH [id number].
--- NOTE | 2021-01-07 14:10 | NUR ---
SOCIAL WORK NOTE: Patient's Orientation Person Situation Place Time Information Provided By PATIENT Comments SW WAS UNABLE TO MEET PATIENT AT BEDSIDE. SW COMPLETED ASSESSMENT WITH PATIENT TELEPHONICALLY. Floor Steward/Stewardess, Realtionship and Phone Number SUSHMA GARCIA [phone] [facility] Power of Montessori Teacher No Does Patient Have a POLST No Identifying Problems No Social Work Triggers Is A Social Work Consult Needed No Mandate Report Filed No Explanation Of Identifying Problems PATIENT IS A 70-YEAR-OLD FEMALE ADMITTED FOR CHEST PAIN. PATIENT HAS PMHX OF MYASTHENIA GRAVIS AND HYPERTENSION. Admitted From Home Pre-Admission Level Of Functioning Status Independent With DME Prior Resources/Services Used In Last 12 Months No Prior Resources Used Prior DME Walker Dialysis Comments N/A Living Situation Lives With Family House Patient Had Caregiver No Home Support No Caregiver Issues Financial Issues No Known Financial Issue Referral To The Financial Counselor Needed No Factors/Needs No D/C Needs Identified Pt/Rep Participated In Discharge Plan Yes Patient/Family Agress With Discharge Plan Yes Discharge Plan Comments TENTATIVE DISCHARGE PLAN IS FOR PATIENT TO RETURN HOME. DC Plan Status Initiated
--- NOTE | 2021-01-07 14:37 | NUR ---
ADMINISTERED PRN MEDICATION FOR 7/10 PAIN PRESCRIBED BY MD ORDER. PATIENT TOLERATED WELL. MEDICATION EDUCATION PROVIDED. PATIENT VERBALIZED UNDERSTANDING. SAFETY MEASURES IN PLACE. WILL CONTINUE TO MONITOR.
--- NOTE | 2021-01-07 15:54 | NUR ---
01/07/21 RD INITIAL ASSESSMENT COMPLETED PLEASE REFER TO NUTRITION ASSESSMENT UNDER CARE ACTIVITY FOR ESTIMATED NUTRITIONAL NEEDS. 1. CONTINUE PUREE CARDIAC DIET TOLERATED 2. RECOMMEND ENSURE TID 3. RD TO FOLLOW-UP 3-5 DAYS, MODERATE RISK [address]
[2021-01-07 16:00] VITALS: BP 109/66
--- NOTE | 2021-01-07 16:25 | NUR ---
HOURLY ROUNDING PERFORMED. PATIENT LYING IN BED TALKING ON CELL PHONE. STATED PAIN IS MANAGEABLE /10. ABLE TO MAKE NEEDS KNOWN. PROVIDED PATIENT W/ ICE WATER PER REQUEST. SAFETY MEASURES IN PLACE. WILL CONTINUE TO MONITOR.
[2021-01-07] MEDS ORDERED: COMMUNICATION ORDER MC SCH (17:10)
[2021-01-07] MEDS: PYRIDOSTIGMINE 60 MG TAB PO SCH ×2 (18:22→20:47)
[2021-01-07] MEDS: predniSONE 20 MG TAB PO SCH (18:22)
--- NOTE | 2021-01-07 18:33 | NUR ---
ADMINISTERED PRESCRIBED MEDS AND PRN MED FOR 8/10 PAIN. PATIENT TOLERATED WELL. MEDICATION EDUCATION PROVIDED. PATIENT VERBALIZED UNDERSTANDING. SAFETY MEASURES IN PLACE. WILL CONTINUE TO MONITOR.
--- NOTE | 2021-01-07 19:15 | NUR ---
BEDSIDE ENDORSEMENT GIVEN TO NIGHTSHIFT NURSE FOR CONTINUITY OF CARE.
--- NOTE | 2021-01-07 19:16 | NUR ---
RECEIVED BEDSIDE REPORT FROM DAY RN. PT IS AAOX4 RESPIRATIONS ARE EQUAL AND UNLABORED ON 4L NC SAT WELL 98%. LUNG SOUNDS ARE CLEAR. C/O SOB. ABD IS SOFT. BOWEL SOUNDS ACTIVE X4. HER HX OF MYESTHESIA GRAVIS TTO HAVE IVIG TONIGHT PT IS AWARE. SKIN IS INTACT. IV ON LAC 20G INFUSING IVF PER ORDERS. POC DISCUSSED WITH PT. EDUCATED PT TO CALL FOR ASSISTANCE PT VERBALIZED UNDERSTANDING. BED ALARM ON. ALL SAFETY MEASURES ARE IN PLACE. WILL CONTINUE TO MONITOR.
[2021-01-07 20:00] VITALS: BP 102/69
[2021-01-07] MEDS: CALCIUM CARB/VIT-D 500 MG/200 IU 1 TAB PO SCH (20:45)
[2021-01-07] MEDS: DOCUSATE SODIUM 100 MG GELCAP PO SCH (20:46)
[2021-01-07] MEDS: APIXABAN 2.5 MG TAB PO SCH (20:46)
[2021-01-07] MEDS: carvediloL 6.25 MG TAB PO SCH (20:46)
[2021-01-07] MEDS: IMMUNE GLOBULIN IV SCH (20:47)
[2021-01-07] MEDS: [UNRECOGNIZED DRUG - OTHER] IV SCH (20:47)
--- NOTE | 2021-01-07 20:47 | NUR ---
VITAL SIGNS ARE STABLE. ADMIN LASHAWN MEDICATIONS PER ORDERS. IVIG STARTED PER PROTOCOL AND WILL INCREASE PER PROTOCOL. MED EDUCATION GIVEN. PT VERBALIZED UNDERSTANDING. CALL LIGHT IS WITHIN REACH.
[2021-01-07] MEDS ORDERED: CRUSHER, PILL MC ONE (21:59)
[2021-01-07] MEDS: HYDROcodone/APAP 5/325 MG 1 TAB TAB PO PRN (22:05)
[2021-01-07] MEDS: HYDROcodone/APAP 7.5/325 MG 1 TAB PO PRN (22:05)
--- NOTE | 2021-01-07 22:05 | NUR ---
VS. ADMIN NORCO FOR BACK PAIN. ALL NEEDS MET. CALL LIGHT IS WITHIN REACH.
[2021-01-08] VITALS: BP 100/57
--- NOTE | 2021-01-08 | NUR ---
VITAL SIGNS ARE WITHIN NORMAL LIMITS. EDUCATED PATIENT ON NEED FOR UA PT VERBALIZED UNDERSTANDING. ALL SAFETY MEASURES ARE IN PLACE.
--- NOTE | 2021-01-08 02:07 | NUR ---
MADE ROUNDS. PATIENT APPEARS TO BE SLEEPING. CHEST RISE AND FALL NOTED. CALL LIGHT IS WITHIN REACH.
[2021-01-08] MEDS: MORPHINE SULFATE 2 MG/ML SYR IVP PRN ×2 (03:53→12:09)
--- NOTE | 2021-01-08 03:53 | NUR ---
VITAL SIGNS ARE STABLE. C/C BACK PAIN ADMIN PRN MORPHINE. ALL SAFETY MEASURES ARE IN PLACE. WILL CONTINUE TO MONITOR.
[2021-01-08 04:00] VITALS: BP 110/61
[2021-01-08 06:01] LABS: BILIRUBIN,URINE NEGATIVE (NEGATIVE); BLOOD, URINE NEGATIVE (NEGATIVE); COLOR,URINE YELLOW (YELLOW); LEUKOCYTE ESTERASE ,URINE NEGATIVE (NEGATIVE); UGLUCOSE NEGATIVE (NEGATIVE)
[2021-01-08 06:08] LABS: BASOPHILS % (AUTO) 0.1 % (0.0-2.0); HEMATOCRIT 29.7 % (36-48); HEMOGLOBIN 9.2 g/dL (12.0-16.0); LYMPHOCYTES # (AUTO) 0.3 K/uL (2.5-16.5); LYMPHOCYTES % (AUTO) 11.1 % (20.5-51.1); MEAN CORPUSCULAR HEMOGLOBIN 22 pg (27-31); MEAN CORPUSCULAR HGB CONC 31 g/dL (33-37); MEAN CORPUSCULAR VOLUME 70.8 fL (80-94); MONOCYTES # (AUTO) 0.1 K/uL (0.8-1.0); MONOCYTES % (AUTO) 1.8 % (1.7-9.3); NEUTROPHILS # (AUTO) 2.6 K/uL (1.8-7.7); PLATELET COUNT (AUTO) 159 K/uL (140-450); RED CELL DISTRIBUTION WIDTH 18.8 % (11.6-13.7)
[2021-01-08] MEDS ORDERED: ALBUTEROL SULFATE/IPRATROPIU 3 ML SOL IH PRN (06:10)
[2021-01-08 06:11] LABS: ANION GAP 4.1 (8-16); CARBON DIOXIDE 34.3 mmol/L (21-32); CREATININE 0.7 mg/dL (0.6-1.3); POTASSIUM 4.4 mmol/L (3.5-5.1)
[2021-01-08 06:32] LABS: PHOSPHORUS 3.7 mg/dL (2.5-4.9)
--- NOTE | 2021-01-08 07:35 | NUR ---
GAVE BEDSIDE REPORT. PT ENDORSED IN STABLE CONDITION.
[2021-01-08 08:00] VITALS: BP 107/60
[2021-01-08] MEDS: NACL 0.9% 1,000 ML IV SCH ×2 (08:57→20:50)
[2021-01-08] MEDS ORDERED: predniSONE 20 MG TAB PO SCH (09:00)
[2021-01-08] MEDS: carvediloL 6.25 MG TAB PO SCH ×2 (09:00→20:51)
[2021-01-08 09:05] LABS: APPEARANCE,URINE SLIGHTLY HAZY (CLEAR); NITRITE, URINE POSITIVE (NEGATIVE)
[2021-01-08] MEDS: DOCUSATE SODIUM 100 MG GELCAP PO SCH ×2 (09:05→20:51)
[2021-01-08 09:06] LABS: RBC,URINE 0-5 /HPF (0-5); WBC,URINE 0-5 /HPF (0-5)
[2021-01-08] MEDS: CALCIUM CARB/VIT-D 500 MG/200 IU 1 TAB PO SCH ×2 (09:06→21:04)
[2021-01-08] MEDS: predniSONE 20 MG TAB PO SCH (09:07)
[2021-01-08] MEDS: AMIODARONE 200 MG TAB PO SCH (09:08)
[2021-01-08] MEDS: PANTOPRAZOLE 40 MG TABEC PO SCH (09:08)
[2021-01-08] MEDS: APIXABAN 2.5 MG TAB PO SCH ×2 (09:12→20:56)
[2021-01-08] MEDS: HYDROcodone/APAP 7.5/325 MG 1 TAB PO PRN ×3 (09:14→22:22)
[2021-01-08] MEDS: PYRIDOSTIGMINE 60 MG TAB PO SCH ×4 (09:15→20:50)
[2021-01-08 12:00] VITALS: BP 135/69
--- NOTE | 2021-01-08 12:30 | NUR ---
oxygen put down to 3L
--- NOTE | 2021-01-08 15:00 | NUR ---
1400: Patient put on 2LPM oxygen satting 98% 1500: Patient on room air; satting 97%
[2021-01-08 16:00] VITALS: BP 135/76
--- NOTE | 2021-01-08 16:19 | NUR ---
LOC AWAKE AND ALERT VERBALLY RESPONSIVE GOOD CHEST RISE TOLERATED INCENTIVE SPIROMETRY THERAPY WELL WITHOUT ADVERSE REACTIONS NOTED ENCOURAGED PATIENT WITH ACKNOWLEDGEMENT TO USE INCENTIVE SPIROMETRY EVERY 1-2 HOURS WHILE AWAKE
--- NOTE | 2021-01-08 16:23 | NUR ---
I received home oxygen tank from center receptionist. I put it in patient's room by bedside.
[2021-01-08 20:00] VITALS: BP 123/67
[2021-01-08] MEDS: [UNRECOGNIZED DRUG - OTHER] IV SCH ×4 (21:05→22:35)
[2021-01-08] MEDS: IMMUNE GLOBULIN IV SCH ×4 (21:05→22:35)
[2021-01-09] VITALS: BP 143/59
[2021-01-09] MEDS: HYDROcodone/APAP 5/325 MG 1 TAB TAB PO PRN (01:10)
[2021-01-09] MEDS: MORPHINE SULFATE 2 MG/ML SYR IVP PRN ×5 (03:08→21:00)
[2021-01-09 04:00] VITALS: BP 132/73
[2021-01-09] MEDS: HYDROcodone/APAP 7.5/325 MG 1 TAB PO PRN (05:39)
[2021-01-09] MEDS: NACL 0.9% 1,000 ML IV SCH ×2 (05:39→17:58)
[2021-01-09 07:17] LABS: EOSINOPHILS % (AUTO) 0.1 % (0.0-4.0); HEMATOCRIT 25.4 % (36-48); HEMOGLOBIN 7.9 g/dL (12.0-16.0); LYMPHOCYTES # (AUTO) 0.9 K/uL (2.5-16.5); LYMPHOCYTES % (AUTO) 18.2 % (20.5-51.1); MEAN CORPUSCULAR HEMOGLOBIN 22 pg (27-31); MEAN CORPUSCULAR HGB CONC 31 g/dL (33-37); MEAN CORPUSCULAR VOLUME 69.7 fL (80-94); MONOCYTES # (AUTO) 0.4 K/uL (0.8-1.0); MONOCYTES % (AUTO) 8.5 % (1.7-9.3); NEUTROPHILS # (AUTO) 3.6 K/uL (1.8-7.7); NEUTROPHILS % (AUTO) 73.2 % (42.2-75.2); PLATELET COUNT (AUTO) 143 K/uL (140-450); RED BLOOD CELL COUNT(AUTO) 3.64 MIL/uL (4.20-5.40); RED CELL DISTRIBUTION WIDTH 19.1 % (11.6-13.7); WHITE BLOOD COUNT (AUTO) 4.9 K/uL (4.8-10.8)
--- NOTE | 2021-01-09 07:25 | NUR ---
RECEIVED PATIENT FROM NIGHT NURSE. PATIENT IN BED AWAKE AND ALERT. RESP EVEN AND UNLABORED ON 2LNC. NO NOTED DISTRESS AT THIS TIME. LAC 20G INFUSING NS 100ML/HR. PATIENT SLEPT WELL THROUGH THE NIGHT. PLAN OF CARE DISCUSSED, PATIENT VERBALIZED UNDERSTANDING. HOB ELEVATED. SAFETY MEASURES IN PLACE. CALL LIGHT WITHIN REACH. WILL CONTINUE TO MONITOR.
[2021-01-09 08:00] VITALS: BP 135/74
[2021-01-09] MEDS: carvediloL 6.25 MG TAB PO SCH ×2 (09:00→20:58)
[2021-01-09 09:07] LABS: ANION GAP 5.5 (8-16); CARBON DIOXIDE 34.6 mmol/L (21-32); CREATININE 0.6 mg/dL (0.6-1.3); POTASSIUM 4.1 mmol/L (3.5-5.1)
[2021-01-09 09:11] LABS: MAGNESIUM 1.8 mg/dL (1.8-2.4)
[2021-01-09] MEDS: PANTOPRAZOLE 40 MG TABEC PO SCH (09:33)
[2021-01-09] MEDS: APIXABAN 2.5 MG TAB PO SCH ×2 (09:34→21:04)
[2021-01-09] MEDS: DOCUSATE SODIUM 100 MG GELCAP PO SCH ×2 (09:34→20:57)
[2021-01-09] MEDS: predniSONE 20 MG TAB PO SCH (09:38)
[2021-01-09] MEDS: AMIODARONE 200 MG TAB PO SCH (09:38)
[2021-01-09] MEDS: CALCIUM CARB/VIT-D 500 MG/200 IU 1 TAB PO SCH ×2 (09:40→20:59)
[2021-01-09] MEDS: PYRIDOSTIGMINE 60 MG TAB PO SCH ×4 (09:40→20:59)
--- NOTE | 2021-01-09 09:45 | NUR ---
PATIENT IN BED AWAKE AND ALERT. RESP EVEN AND UNLABORED ON 2LNC, O2SAT 99%. MORNING ROUTINE MEDICATIONS GIVEN, PATIENT TOLERATED WELL. MORPHINE GIVEN IVP FOR BACK PAIN. LAC 20G INTACT AND PATENT, INFUSING NS 100ML/HR. PATIENT ABLE TO MAKE NEEDS KNOWN. ALSO ABLE TO USE BEDSIDE COMMODE SAFELY. HOB ELEVATED. CALL LIGHT WITHIN REACH. WILL CONTINUE TO MONITOR.
--- NOTE | 2021-01-09 11:35 | NUR ---
PATIENT IN BED AWAKE, ALERT AND WATCHING TV. NO NOTED ACUTE S/S DISTRESS. RESP EVEN AND UNLABORED ON 2LNC. CALL LIGHT WITHIN REACH. WILL CONTINUE TO MONITOR.
[2021-01-09 12:00] VITALS: BP 126/62
--- NOTE | 2021-01-09 14:15 | NUR ---
MORPHINE GIVEN FOR BACK PAIN. PATIENT IN BED AWAKE AND ALERT. DINNER TRAY WILL BE HELD D/T US GALLBLADDER ORDERED BY DR FELDMAN REQUIRING PATIENT TO BE NPO FOR A FEW HOURS, PER RESIN MAKER. PATIENT VERBALIZED UNDERSTANDING.
[2021-01-09 16:00] VITALS: BP 116/63
--- NOTE | 2021-01-09 17:57 | NUR ---
RAC 20G ACCESS INFILTRATED. IV ACCESS INSERTED TO LEFT INNER FOREARM 22G USING ASEPTIC TECHNIQUE. PATIENT TOLERATED WELL.
--- NOTE | 2021-01-09 19:20 | NUR ---
ENDORSED PATIENT TO NIGHT NURSE. PATIENT IN STABLE CONDITION.
[2021-01-09 20:00] VITALS: BP 86/42
[2021-01-09] MEDS: [UNRECOGNIZED DRUG - OTHER] IV SCH ×3 (21:49→23:24)
[2021-01-09] MEDS: IMMUNE GLOBULIN IV SCH ×3 (21:49→23:24)
[2021-01-10] VITALS: BP 129/60
[2021-01-10] MEDS: [UNRECOGNIZED DRUG - OTHER] IV SCH (00:39)
[2021-01-10] MEDS: IMMUNE GLOBULIN IV SCH (00:39)
[2021-01-10] MEDS: MORPHINE SULFATE 2 MG/ML SYR IVP PRN ×5 (00:40→14:46)
[2021-01-10] MEDS: NACL 0.9% 1,000 ML IV SCH ×2 (01:50→11:13)
[2021-01-10 04:00] VITALS: BP 153/67
[2021-01-10 06:19] LABS: ANION GAP 7.6 (8-16); CARBON DIOXIDE 32.4 mmol/L (21-32); CREATININE 0.6 mg/dL (0.6-1.3)
[2021-01-10 06:20] LABS: BASOPHILS % (AUTO) 0.1 % (0.0-2.0); EOSINOPHILS % (AUTO) 0.1 % (0.0-4.0); HEMATOCRIT 25.9 % (36-48); HEMOGLOBIN 8.1 g/dL (12.0-16.0); LYMPHOCYTES # (AUTO) 0.8 K/uL (2.5-16.5); LYMPHOCYTES % (AUTO) 18.2 % (20.5-51.1); MEAN CORPUSCULAR HEMOGLOBIN 22 pg (27-31); MEAN CORPUSCULAR HGB CONC 31 g/dL (33-37); MEAN CORPUSCULAR VOLUME 70.7 fL (80-94); MONOCYTES # (AUTO) 0.3 K/uL (0.8-1.0); MONOCYTES % (AUTO) 7.4 % (1.7-9.3); NEUTROPHILS # (AUTO) 3.3 K/uL (1.8-7.7); NEUTROPHILS % (AUTO) 74.2 % (42.2-75.2); PLATELET COUNT (AUTO) 152 K/uL (140-450); RED BLOOD CELL COUNT(AUTO) 3.66 MIL/uL (4.20-5.40); WHITE BLOOD COUNT (AUTO) 4.5 K/uL (4.8-10.8)
--- NOTE | 2021-01-10 07:10 | NUR ---
REC'D REPORT FROM HAIR DRYER NURSE, PT STABLE, RESTING. 2L NC, BED LOWEST POSITION. CALL LIGHT WITHIN REACH
--- NOTE | 2021-01-10 07:56 | NUR ---
PT A/Ox4. 2L HUMIDIFIED NC. LUNGS CLEAR. COMMODE AT BEDSIDE, IS PERFORMED HOURLY, PT CAN DEMONSTRATE PROPER USE. ABD TENDER D/T R. UPPER QUADRANT PAIN, NO EDEMA NOTES. PT STABLE, RESTING, CALL LIGHT WITHIN REACH.
[2021-01-10 08:00] VITALS: BP 143/71
[2021-01-10] MEDS: APIXABAN 2.5 MG TAB PO SCH (09:21)
[2021-01-10] MEDS: AMIODARONE 200 MG TAB PO SCH (09:22)
[2021-01-10] MEDS: CALCIUM CARB/VIT-D 500 MG/200 IU 1 TAB PO SCH (09:23)
[2021-01-10] MEDS: PANTOPRAZOLE 40 MG TABEC PO SCH (09:23)
[2021-01-10] MEDS: PYRIDOSTIGMINE 60 MG TAB PO SCH ×2 (09:23→13:00)
[2021-01-10] MEDS: DOCUSATE SODIUM 100 MG GELCAP PO SCH (09:23)
[2021-01-10] MEDS: predniSONE 20 MG TAB PO SCH (09:24)
[2021-01-10] MEDS: carvediloL 6.25 MG TAB PO SCH (09:24)
--- NOTE | 2021-01-10 09:33 | NUR ---
ADMINISTERED MEDICATIONS PER MD ORDER, MEDICATIONS WERE CRUSHED AND ADMINISTERED WITH CHOCOLATE PUDDING, PROTONIX WAS NOT CRUSHED, MIXED IN WITH PUDDING. PT TOLERATED PROCEDURE WELL. STABLE, ON PHONE WITH FAMILY, CALL LIGHT WITHIN REACH.
[2021-01-10] MEDS ORDERED: HYDR-5080 PO (11:43)
[2021-01-10] MEDS ORDERED: CARV6.25 PO (11:43)
[2021-01-10] MEDS ORDERED: APIX2.5 PO (11:43)
[2021-01-10] MEDS ORDERED: AMIO200T66 PO (11:43)
[2021-01-10] MEDS ORDERED: CEPH250C16 PO (11:46)
[2021-01-10 15:39] VITALS: BP 116/63
--- NOTE | 2021-01-10 17:10 | NUR ---
PT DISCHARGED VIA WHEELCHAIR, OXYGEN TAKEN WITH PT. EDUCATED ON HOW TO ADMINISTER, PT STATES SHE IS WELL AWARE OF HOW IT WORKS, ID BAND REMOVED. PT DISCHARGE PACKET HANDED TO PT. IV CATHETER REMOVED, INTACT. PT STABLE UPON DISCHARGE
== END 2021-01-10 17:05 | disposition home or self-care (01) | DRG 56 ==
LOC: MED 13:29 → MTU 18:02
PROVIDERS: ADMIT Family Medicine; ATTEND Family Medicine
DX: G70.01 Myasthenia gravis with (acute) exacerbation (principal); E43 Unspecified severe protein-calorie malnutrition; J98.11 Atelectasis; M48.54XA Collapsed vertebra, not elsewhere classified, thoracic region, initial encounter for fracture; Z20.822 Contact with and (suspected) exposure to COVID-19; I10 Essential (primary) hypertension; I25.10 Atherosclerotic heart disease of native coronary artery without angina pectoris; M81.0 Age-related osteoporosis without current pathological fracture; K44.9 Diaphragmatic hernia without obstruction or gangrene; E87.6 Hypokalemia; G89.29 Other chronic pain; K21.9 Gastro-esophageal reflux disease without esophagitis; R07.9 Chest pain, unspecified; I48.0 Paroxysmal atrial fibrillation; Z68.21 Body mass index [BMI] 21.0-21.9, adult; Z88.8 Allergy status to other drugs, medicaments and biological substances; Z95.1 Presence of aortocoronary bypass graft; Z80.1 Family history of malignant neoplasm of trachea, bronchus and lung; Z79.01 Long term (current) use of anticoagulants
CPT/HCPCS: 36415; 71045; 72072; 76705; 80048; 80053; 81001; 82150; 83036; 83690; 83735; 83880; 84100; 84439; 84443; 84484; 85025; 85610; 85730; 87081; 87086; 90283; 93005; 94640; 96374; 96375; 97110; 97116; 97163-GP; 97530; 99285; J0696; J2001; J2270; J2405; J3480; J7030; J7060; J7512

== ENCOUNTER 2021-01-17 14:36 | Emergency (ER) | payer OTHER, MEDICAID ==
[~2021-01-17] VITALS: Ht 172.7 cm; Wt 61.2 kg
[~2021-01-17 14:36] MED LIST changes: +CEPH250C16 PO
[2021-01-17 14:40] VITALS: BP 134/84
--- NOTE | 2021-01-17 14:47 | NUR ---
PT TAKEN TO BED 9 VIA W/C
--- NOTE | 2021-01-17 14:50 | NUR ---
70 YO FEMALE BIB SELF FROM HOME FOR C/O OF SOB SINCE LAST NIGHT WITH 9/10 RLQ PAIN THAT RADIATES TO LEFT LOWER BACK. PT NORMALLY USES 2L NC AT HOME FOR COPD. ARRIVES TO ER AT 88% RA. PT PLACED ON 4L N/C NOW 99%. PT STATES PAIN IS STABBING PAIN THAT IS INTERMITTENT. PT STATES SHE HAD COMPRESSED FRACTURE IN HER BACK X1 MO AGO WITH PAIN EVER SINCE. PT STATES ABD PAIN X1 WEEK. PT DENIES N/V/D. PT TOOK TYLENOL 0600 TODAY WITH NO RELIEF. PT STATES SHE FEELS THAT SHE CANNOT CATCH HER BREATH. PT IS MOST COMFORTABLE IN TRIPOD POSITION. LUNG SOUNDS CLEAR BILATERAL THROUGHTOUT. PT IS A/O X4. MED HX: COPD, MYASTHENIA GRAVIS, HTN
--- NOTE | 2021-01-17 14:59 | NUR ---
LAB AND EMT FOR EKG AT BEDSIDE
[2021-01-17 15:10] LABS: BASOPHILS % (AUTO) 0.2 % (0.0-2.0); EOSINOPHILS % (AUTO) 0.1 % (0.0-4.0); HEMOGLOBIN 10.7 g/dL (12.0-16.0); LYMPHOCYTES # (AUTO) 0.6 K/uL (2.5-16.5); LYMPHOCYTES % (AUTO) 6.1 % (20.5-51.1); MEAN CORPUSCULAR HEMOGLOBIN 22 pg (27-31); MEAN CORPUSCULAR HGB CONC 31 g/dL (33-37); MEAN CORPUSCULAR VOLUME 71.1 fL (80-94); MONOCYTES # (AUTO) 0.1 K/uL (0.8-1.0); MONOCYTES % (AUTO) 0.9 % (1.7-9.3); NEUTROPHILS % (AUTO) 92.7 % (42.2-75.2); PLATELET COUNT (AUTO) 268 K/uL (140-450); RED BLOOD CELL COUNT(AUTO) 4.78 MIL/uL (4.20-5.40); WHITE BLOOD COUNT (AUTO) 9.7 K/uL (4.8-10.8)
--- NOTE | 2021-01-17 15:21 | NUR ---
Dr Berry at bedside examining patient
[2021-01-17 15:23] LABS: PROTHROMBIN TIME 10.1 secs (10.8-13.4)
[2021-01-17 15:27] LABS: ALBUMIN 2.7 g/dL (3.4-5.0); ANION GAP 9.4 (8-16); CARBON DIOXIDE 29.4 mmol/L (21-32); CREATININE 0.8 mg/dL (0.6-1.3); POTASSIUM 3.8 mmol/L (3.5-5.1); TOTAL BILIRUBIN 0.5 mg/dL (0.0-1.0)
--- NOTE | 2021-01-17 15:55 | NUR ---
PT USED BEDSIDE COMMODE FOR URINE COLLECTION SAMPLE
[2021-01-17 16:09] LABS: APPEARANCE,URINE HAZY (CLEAR); BILIRUBIN,URINE NEGATIVE (NEGATIVE); BLOOD, URINE 1+ (NEGATIVE); COLOR,URINE YELLOW (YELLOW); LEUKOCYTE ESTERASE ,URINE NEGATIVE (NEGATIVE); NITRITE, URINE NEGATIVE (NEGATIVE); UGLUCOSE NEGATIVE (NEGATIVE)
--- NOTE | 2021-01-17 16:10 | NUR ---
PT COMPLAINING OF 10/10 PAIN IN L LOWER BACK/ RLQ. DR MONACO MADE AWARE
[2021-01-17] MEDS ORDERED: MORPHINE SULFATE 4 MG/ML SYR IVP ONE ×2 (16:15→18:10)
[2021-01-17 16:25] LABS: CALCIUM OXALATE CRYSTALS,UR 0-10 /HPF (None Seen); RBC,URINE 11-20 (MOD) /HPF (0-5)
--- NOTE | 2021-01-17 16:50 | NUR ---
PT TAKEN TO CT VIA RVIRGILIO.
[2021-01-17] MEDS ORDERED: ALBUTEROL 0.083% 2.5 MG/3 ML NEBU INH ONE ×2 (17:05→18:35)
[2021-01-17] MEDS ORDERED: ALBUTEROL SULFATE/IPRATROPIU 3 ML SOL IH ONE (17:05)
--- NOTE | 2021-01-17 17:34 | NUR ---
RT AT BEDSIDE FOR BREATHING TREATMENT
[2021-01-17] MEDS ORDERED: CIPR250P1 PO (18:22)
[2021-01-17] MEDS ORDERED: ACET-8386 PO (18:22)
[2021-01-17] MEDS ORDERED: IBUP-2213 PO (18:22)
[2021-01-17] MEDS ORDERED: PRON INH (18:53)
[2021-01-17] MEDS ORDERED: ALBU0.0912 INH (18:56)
[2021-01-17 19:18] VITALS: BP 124/68
--- NOTE | 2021-01-17 19:19 | NUR ---
Patient discharged with v/s stable. Written and verbal after care instructions given and explained. Patient alert, oriented and verbalized understanding of instructions. Wheel Chair Assisted with to car. All questions addressed prior to discharge. ID band removed. Patient advised to follow up with PMD. Rx of hydrocodone/acetaminophen, ciprofloxacin, and ibuprofen given. Patient educated on indication of medication including possible reaction and side effects. Opportunity to ask questions provided and answered.
== END 2021-01-17 19:18 | disposition home or self-care (01) ==
LOC: MED 14:36
DX: J44.9 Chronic obstructive pulmonary disease, unspecified (principal); N39.0 Urinary tract infection, site not specified; I10 Essential (primary) hypertension; Z88.5 Allergy status to narcotic agent; Z79.899 Other long term (current) drug therapy
CPT/HCPCS: 36415; 71045; 74176; 80053; 81001; 84484; 85025; 85610; 85730; 87086; 93005; 94640; 96374; 96376; 99285; J2270; J7613

== ENCOUNTER 2021-01-19 17:50 | Emergency (ER) | payer OTHER, MEDICAID ==
[~2021-01-19] VITALS: Ht 172.7 cm; Wt 61.2 kg
[2021-01-19 17:50] VITALS: BP 148/87
[~2021-01-19 17:50] MED LIST changes: +ACET-8386 PO; +ALBU0.0912 INH; +CIPR250P1 PO; +IBUP-2213 PO; +PRON INH
--- NOTE | 2021-01-19 18:11 | NUR ---
70YO F C/O 08/31 MID UPPER BACK PAIN X 1 DAY. PT TOOK NORCO WITH NO RELIEF. PT STATES SHE HAS A FRACTURE IN HER BACK AND MAY HAVE REINJURED IT. DENIES FALL/TRAUMA. UPON ASSESSMENT, PT IS SCREAMING AND CRYING IN PAIN. PT WITH LABORED BREATHING. PT PUT ON SAME 02 SETTINGS AT HOME OF 2L VIA NC. BED IN LOWEST POSITION WITH 2 SIDERAILS UP. ERMD MADE AWARE OF PT STATUS. MED HX: COPD(2L NC AT HOME), MYASTASIA GRAVIS
[2021-01-19] MEDS ORDERED: MORPHINE SULFATE 4 MG/ML SYR IVP ONE ×2 (18:40→19:35)
--- NOTE | 2021-01-19 18:51 | NUR ---
PT BROUGHT TO XRAY VIA WHEELCHAIR AT THIS TIME
--- NOTE | 2021-01-19 19:10 | NUR ---
REPORT GIVEN TO ROMAIN AMADOR. ALL CARE TRANSFERRED AT THIS TIME.
--- NOTE | 2021-01-19 19:13 | NUR ---
REPORT RECEIVED FROM ROMAIN Paris. CARE ASSUMED.
[2021-01-19] MEDS ORDERED: ONDANSETRON 4 MG/2 ML VIAL ONE (19:39)
[2021-01-19] MEDS ORDERED: ONDANSETRON 4 MG/2 ML VIAL IVP ONE (19:40)
--- NOTE | 2021-01-19 19:40 | NUR ---
ADDITIONAL PAIN MED ORDERED FOR PAIN RATED 9/10
[2021-01-19] MEDS ORDERED: ONDA8TAB87 PO (19:46)
[2021-01-19] MEDS ORDERED: HYDR-5191 PO (19:51)
--- NOTE | 2021-01-19 19:55 | NUR ---
READY FOR DISCHARGE. PAIN DECREASED. IV D/C'D CATHETER INTACT, ARMBAND REMOVED.
[2021-01-19 20:35] VITALS: BP 138/79
--- NOTE | 2021-01-19 20:35 | NUR ---
Patient discharged with v/s stable. Written and verbal after care instructions given and explained. Patient alert, oriented and verbalized understanding of instructions. Wheel Chair Assisted with to car. All questions addressed prior to discharge. ID band removed. Patient advised to follow up with PMD. Rx of NORCO & ZOFRAN given. Patient educated on indication of medication including possible reaction and side effects. Opportunity to ask questions provided and answered.
== END 2021-01-19 20:35 | disposition home or self-care (01) ==
LOC: MED 17:50
DX: M54.5 Low back pain (principal); J44.9 Chronic obstructive pulmonary disease, unspecified; I10 Essential (primary) hypertension; Z87.81 Personal history of (healed) traumatic fracture; Z88.5 Allergy status to narcotic agent; Z88.8 Allergy status to other drugs, medicaments and biological substances; Z79.899 Other long term (current) drug therapy; Z90.49 Acquired absence of other specified parts of digestive tract
CPT/HCPCS: 72072; 96374; 96375; 96376; 99284; J2270; J2405

== ENCOUNTER 2021-04-19 18:37 | Inpatient (IN) | payer OTHER, MEDICAID ==
[~2021-04-19] VITALS: Ht 160 cm; Wt 56.7 kg
[~2021-04-19 18:37] MED LIST changes: +ALBU-118 IH; -ALBU-136 IH; +HYDR-5191 PO; +ONDA8TAB87 PO
[2021-04-19 18:43] VITALS: BP 136/79
--- NOTE | 2021-04-19 18:48 | NUR ---
70 YEAR OLD FEMALE COMPLAINS OF CHEST PAIN, SOB X 4 HOURS. PT STATES MORE SIMILAR TO CHEST DISCOMFORT WITH BURNING SENSATION. PT AOX4, BREATHING EVEN AND UNLABORED, SKIN WARM AND DRY. BED IN LOWEST POSITION, LOCKED, BED RAIL UPX1. PMH - HTN, COPD, AFIB ALLERGIES - BENADRYL, GABAPENTIN, ROBITUSSIN
[2021-04-19] MEDS ORDERED: MORPHINE SULFATE 2 MG/ML SYR IVP STA (19:04)
--- NOTE | 2021-04-19 19:12 | NUR ---
Report received from ROMAIN Abrams for continuation of care. Addendum: 04/19/21 at 2018 by [facility] Report received from ROMAIN Wei for continuation of care.
--- NOTE | 2021-04-19 19:14 | NUR ---
Laura collected and handed to Paxton from lab.
--- NOTE | 2021-04-19 19:15 | NUR ---
REPORT GIVEN TO DON HOYOS, TRANSFER OF CARE AT THIS TIME
--- NOTE | 2021-04-19 19:20 | NUR ---
Patient AOx4, w c/o chest pain 9/10 and some SOB. S1S2 present, cap refill <3sec, radial pulses +2 bilaterally. Lung sounds clear throughout, patient speaking in full sentences. No acute distress noted. VSS.
--- NOTE | 2021-04-19 19:35 | NUR ---
RT at bedside.
--- NOTE | 2021-04-19 19:36 | NUR ---
Dr. Mendoza examining patient.
[2021-04-19 19:45] LABS: BASOPHILS # (AUTO) 0.3 K/uL (0.00-0.22); BASOPHILS % (AUTO) 3.6 % (0.0-2.0); EOSINOPHILS # (AUTO) 0.1 K/uL (0-0.4); EOSINOPHILS % (AUTO) 1.4 % (0.0-4.0); HEMATOCRIT 35.3 % (36-48); HEMOGLOBIN 11.5 g/dL (12.0-16.0); LYMPHOCYTES # (AUTO) 1.1 K/uL (2.5-16.5); LYMPHOCYTES % (AUTO) 13.9 % (20.5-51.1); MEAN CORPUSCULAR HEMOGLOBIN 27 pg (27-31); MEAN CORPUSCULAR HGB CONC 33 g/dL (33-37); MEAN CORPUSCULAR VOLUME 82.5 fL (80-94); MONOCYTES # (AUTO) 0.3 K/uL (0.8-1.0); MONOCYTES % (AUTO) 3.5 % (1.7-9.3); NEUTROPHILS % (AUTO) 77.6 % (42.2-75.2); PLATELET COUNT (AUTO) 209 K/uL (140-450); RED BLOOD CELL COUNT(AUTO) 4.27 MIL/uL (4.20-5.40); RED CELL DISTRIBUTION WIDTH 21.1 % (11.6-13.7); WHITE BLOOD COUNT (AUTO) 7.7 K/uL (4.8-10.8)
[2021-04-19 19:55] LABS: APPEARANCE,URINE SL CLOUDY (CLEAR); BILIRUBIN,URINE NEGATIVE (NEGATIVE); BLOOD, URINE 1+ (NEGATIVE); COLOR,URINE YELLOW (YELLOW); LEUKOCYTE ESTERASE ,URINE 2+ (NEGATIVE); NITRITE, URINE NEGATIVE (NEGATIVE); UGLUCOSE NEGATIVE (NEGATIVE)
[2021-04-19 19:58] LABS: PROTHROMBIN TIME 9.7 secs (10.8-13.4)
[2021-04-19 19:59] LABS: ALBUMIN 2.3 g/dL (3.4-5.0); ANION GAP 7.1 (8-16); CARBON DIOXIDE 31.5 mmol/L (21-32); CREATININE 0.5 mg/dL (0.6-1.3); POTASSIUM 3.6 mmol/L (3.5-5.1); TOTAL BILIRUBIN 0.2 mg/dL (0.0-1.0)
[2021-04-19 20:07] LABS: WBC,URINE 20-60 /HPF (0-5)
[2021-04-19] MEDS ORDERED: cefTRIAXone 1,000 MG VIAL ONE (20:57)
[2021-04-19] MEDS ORDERED: MORPHINE SULFATE 4 MG/ML SYR IVP ONE (22:50)
[2021-04-19] MEDS ORDERED: ONDANSETRON 4 MG/2 ML VIAL IVP ONE (23:10)
[2021-04-20] VITALS: BP 110/67
[2021-04-20] MEDS ORDERED: POTASSIUM CHLORIDE 10 MEQ TABER PO PRN (01:25)
[2021-04-20] MEDS ORDERED: MAG SULF 2000 MG/WATER PREMIX 50 ML IV PRN (01:25)
[2021-04-20] MEDS ORDERED: KCL 20 MEQ/WATER INJ PREMIX 200 ML IV PRN (01:25)
[2021-04-20] MEDS ORDERED: ACETAMINOPHEN 325 MG TAB PO PRN (01:25)
[2021-04-20 04:00] VITALS: BP 103/65
--- NOTE | 2021-04-20 04:00 | NUR ---
RECEIVED REPORT FROM ER NURSE. PT IS ALERT , ORIENTED X4 , CAME FROM [facility] WITH THE CC: CHEST PAIN, SOB WITH DX : UTI, MYASTHENIA GRAVIS. NO DISTRESS/SOB NOTED AT THIS TIME. LUNGS CLEAR UPON AUSCULTATION, BOWEL SOUNDS PRESENT IN ALL 4 QUADRANT. SAFETY MEASURES IN PLACE. CALL LIGHT WITHIN REACH. MRSA SCREENING DONE. WILL CONTINUE TO MONITOR.
[2021-04-20] MEDS: HYDROcodone/APAP 5/325 MG 1 TAB TAB PO PRN ×3 (04:46→23:17)
--- NOTE | 2021-04-20 06:20 | NUR ---
pt admitted to [facility] unit under the care of Pennie HOYOS.
--- NOTE | 2021-04-20 07:30 | NUR ---
RECEIVED ENDORSEMENT FROM PUBLIC EMPLOYMENT MEDIATOR RN FOR CONTINUITY OF CARE. PT IS STABLE. RESTING IN BED DENIES ANY DISTRESS.
[2021-04-20 08:00] VITALS: BP 104/64
[2021-04-20] MEDS ORDERED: ENOXAPARIN 40 MG/0.4 ML SYR SUBQ SCH (09:00)
--- NOTE | 2021-04-20 09:15 | NUR ---
SCHEDULED MEDICATION. TOLERATED WELL PT IS AWAKE AND ALERT ORIENTED X 3/4, LUNGS CLEARS ABD SOFT AND NONTENDER ACTIVE BS X 4 REPORTS LBM LAST NIGHT. DENIES DIFFICULTY. HAS INTACT AND PATENT IV TO RIGHT FA. DENIES ANY PAIN. PT REQUESTING SWALLOW EVAL DUE TO ALWAYS EATING PUREE. GREGORY CATHERINE NOTIFIED.
[2021-04-20] MEDS: DOCUSATE SODIUM 100 MG GELCAP PO SCH (09:25)
--- NOTE | 2021-04-20 10:35 | NUR ---
RESTING IN BED ALL NEEDS MET CALL LIGHT WITHIN REACH.
[2021-04-20 12:00] VITALS: BP 110/76
[2021-04-20] MEDS: PYRIDOSTIGMINE 60 MG TAB PO SCH ×3 (12:29→22:49)
[2021-04-20] MEDS: methylPREDNISolone SS 40 MG/ML VIAL IVP SCH ×2 (12:29→22:49)
--- NOTE | 2021-04-20 12:50 | NUR ---
SCHEDULED MEDICATION GIVEN TOLERATED WELL. DENIES ANY DISTRESS. PROVISION OF CARE PROVIDED.
--- NOTE | 2021-04-20 14:25 | NUR ---
ASSISTED WITH BEDPAN DENIES ANY DISTRESS
[2021-04-20 16:00] VITALS: BP 102/69
[2021-04-20] MEDS ORDERED: IMMUNE GLOBULIN IV SCH (16:00)
[2021-04-20] MEDS: IMMUNE GLOBULIN IV SCH (16:51)
--- NOTE | 2021-04-20 17:00 | NUR ---
IG INFUSION STARTED AT 31ML/HR V/S: 98.0, 88, 18, 101/73, 97% RA PAIN 0/10
--- NOTE | 2021-04-20 17:34 | NUR ---
NO ADVERSE SIDE EFFECTS IG RATE INCREASED TO 62ML/HR.
--- NOTE | 2021-04-20 18:14 | NUR ---
IV IG INCREASED TO 93ML/HR V/S: 97.5, 102, 18, 117/84, 98% RA. PT REPORTING HEADACHE 8/10 PT WANTS STRONGER PAIN MEDICATION REPORTS NORCO IS NOT EFFECTIVE. DR. MAK GASTELUM.
[2021-04-20] MEDS ORDERED: HYDROmorphone 2 MG TAB PO PRN (18:30)
[2021-04-20] MEDS: HYDROmorphone 2 MG TAB PO PRN (18:55)
--- NOTE | 2021-04-20 18:55 | NUR ---
IV IG INCREASED TO 124ML/HR SPOKE WITH DR. CORADO REGARDING HEADACHE ORDERED DILAUDID PO1/2 MG FOR MOD/SEVERE PAIN. PT WAS GIVEN 2 MG DUE TO PAIN 08/01. V/S: 97.9, 84, 18, 106/67, 97% PAIN 08/01. NO REACTION TO INFUSION
--- NOTE | 2021-04-20 19:27 | NUR ---
PT WILL BE ENDORSED TO VASCULAR SONOGRAPHER FOR CONTINUITY OF CARE. PT IS STABLE. PAIN ASSESSMENT ENDORSED.
[2021-04-20 20:00] VITALS: BP 110/67
[2021-04-20] MEDS ORDERED: COMMUNICATION ORDER MC SCH (21:00)
[2021-04-20] MEDS: APIXABAN 2.5 MG TAB PO SCH (22:57)
[2021-04-21] VITALS: BP 123/72
[2021-04-21 04:00] VITALS: BP 104/62
[2021-04-21 06:03] LABS: BASOPHILS % (AUTO) 0.2 % (0.0-2.0); HEMATOCRIT 34.2 % (36-48); HEMOGLOBIN 11.2 g/dL (12.0-16.0); LYMPHOCYTES # (AUTO) 0.4 K/uL (2.5-16.5); LYMPHOCYTES % (AUTO) 11.2 % (20.5-51.1); MEAN CORPUSCULAR HEMOGLOBIN 28 pg (27-31); MEAN CORPUSCULAR HGB CONC 33 g/dL (33-37); MEAN CORPUSCULAR VOLUME 84.3 fL (80-94); MONOCYTES # (AUTO) 0.1 K/uL (0.8-1.0); MONOCYTES % (AUTO) 1.7 % (1.7-9.3); NEUTROPHILS # (AUTO) 3.4 K/uL (1.8-7.7); NEUTROPHILS % (AUTO) 86.9 % (42.2-75.2); PLATELET COUNT (AUTO) 208 K/uL (140-450); RED BLOOD CELL COUNT(AUTO) 4.05 MIL/uL (4.20-5.40); RED CELL DISTRIBUTION WIDTH 20.6 % (11.6-13.7); WHITE BLOOD COUNT (AUTO) 3.9 K/uL (4.8-10.8)
[2021-04-21 06:11] LABS: CARBON DIOXIDE 28.3 mmol/L (21-32); CREATININE 0.5 mg/dL (0.6-1.3); MAGNESIUM 1.8 mg/dL (1.8-2.4); PHOSPHORUS 3.3 mg/dL (2.5-4.9); POTASSIUM 4.3 mmol/L (3.5-5.1)
[2021-04-21] MEDS: methylPREDNISolone SS 40 MG/ML VIAL IVP SCH (06:34)
--- NOTE | 2021-04-21 07:23 | NUR ---
ENDORSED TO THE MORNING NURSE FOR CONTINUITY OF CARE.
[2021-04-21] MEDS: BUDESONIDE 0.5 MG/2 ML NEBU INH SCH ×2 (07:30→19:06)
--- NOTE | 2021-04-21 07:30 | NUR ---
PATIENT RECEIVED FROM GLASS NOVELTY MAKER RN. PT RESTING IN BED EYES CLOSED. EASY TO AROUSE. BREATHING IS SYMMETRICAL AND UNLABORED. CALL LIGHT IS WITHIN REACH/ ALL SAFETY MEASURES ARE IN PLACE. NO S/S OF DISTRESS .
[2021-04-21] MEDS: ALBUTEROL SULFATE/IPRATROPIU 3 ML SOL IH SCH ×4 (07:51→19:06)
[2021-04-21 08:00] VITALS: BP 137/82
--- NOTE | 2021-04-21 08:08 | NUR ---
PT ASSISTED WITH ANDREA HILL.
--- NOTE | 2021-04-21 08:25 | NUR ---
PT TAKEN OFF BED HILL ONE LARGE BM, BROWN SOFT FORMED. ASSISTED WITH MEAL TRAY SET UP. EXTRA BLANKET PROVIDED. PT ORIENTED TO ROOM AND CONTROLS. PT EDUCATED HOW TO CALL ME IF NEEDED. ALL SAFETY MEASURES ARE IN PLACE.
[2021-04-21] MEDS: APIXABAN 2.5 MG TAB PO SCH ×2 (08:35→20:38)
[2021-04-21] MEDS: carvediloL 3.125 MG TAB PO SCH (08:38)
[2021-04-21] MEDS: PYRIDOSTIGMINE 60 MG TAB PO SCH ×4 (08:38→20:38)
--- NOTE | 2021-04-21 08:50 | NUR ---
MEDICATIONS GIVEN PER MD ORDER. PT EDUCATED AND VERBALIZED UNDERSTANDING. PT TOLERATED WELL. PT REFUSED COLACE BECAUSE SHE CLAIMS IT HAS GIVEN HER DIARRHEA FOR FOUR DAYS. CALL LIGHT IS WITHIN REACH. ALL SAFETY MEASURES ARE IN PLACE. NO S/S OF DISTRESS .
[2021-04-21] MEDS ORDERED: COMMUNICATION ORDER MC SCH (09:00)
[2021-04-21] MEDS: DOCUSATE SODIUM 100 MG GELCAP PO SCH (09:00)
--- NOTE | 2021-04-21 10:35 | NUR ---
PT ASSISTED WITH PHONE SET UP TO TALK TO FAMILY.
--- NOTE | 2021-04-21 11:22 | NUR ---
PATIENT HAS BEEN SCREENED AND CATEGORIZED HIGH NUTRITION RISK. PATIENT WILL BE SEEN WITHIN 1-2 DAYS OF ADMISSION. 04/20/21 - 04/21/21 BLAIR DELANEY MBA, RD
--- NOTE | 2021-04-21 11:23 | NUR ---
PT CLAIMS SHE DOES NOT WANT ANY INFORMATION GIVEN TO HER DAUGHTER. PTS CHART UPDATED WILL ENDORSE TO NURSE
--- NOTE | 2021-04-21 11:59 | NUR ---
PT RESULT CAME BACK + FOR MRSA. PT PLACED ON CONTACT PRECAUTIONS
[2021-04-21] MEDS: HYDROcodone/APAP 5/325 MG 1 TAB TAB PO PRN ×2 (13:18→23:49)
[2021-04-21] MEDS: MUPIROCIN CA NASAL 2% 1GM TUBE NS SCH (13:18)
--- NOTE | 2021-04-21 13:18 | NUR ---
PT COMPLAINS OF 7/10 PAIN IN HEAD. PRN GIVEN PER MD ORDER. PT EDUCATED AND VERBALIZED UNDERSTANDING. PT TOLERATED WELL. CALL LIGHT IS WITHIN REACH. ALL SAFETY MEASURES ARE IN PLACE. NO S/S OF DISTRESS .
--- NOTE | 2021-04-21 13:25 | NUR ---
PT RESTING IN BED. MEDICATIONS GIVEN PER MD ORDER. PT EDUCATED AND VERBALIZED UNDERSTANDING. PT TOLERATED WELL. CALL LIGHT IS WITHIN REACH. ALL SAFETY MEASURES ARE IN PLACE. NO S/S OF DISTRESS .
[2021-04-21] MEDS: CHLORHEXADINE GLUC 2% CLOTH TP SCH (13:26)
--- NOTE | 2021-04-21 14:25 | NUR ---
PT REASSESSED FOR PAIN PT STATES IT IS TOLERABLE 5/10 BUT WOULD PREFER IV DILAUDID FOR THE NIGHT. MD IS AWARE.
[2021-04-21 14:32] VITALS: BP 94/57
--- NOTE | 2021-04-21 15:59 | NUR ---
04/21/21 RD INITIAL ASSESSMENT COMPLETED. PLEASE REFER TO NUTRITION ASSESSMENT UNDER CARE ACTIVITY FOR ESTIMATED NUTRITIONAL NEEDS. RD RECOMMENDATIONS: 1. RECOMMEND CONTINUE REGULAR DIET (TOLERATED WELL BY PATIENT PER RN) 2. CLOSE MONITOR PO DIET TOLERANCE / INTAKE 3. F/U 3-5 DAYS; MODERATE RISK BLAIR DELANEY MBA, RD
[2021-04-21] MEDS: IMMUNE GLOBULIN IV SCH (16:15)
[2021-04-21] MEDS: HYDROmorphone 2 MG TAB PO PRN (18:02)
--- NOTE | 2021-04-21 18:02 | NUR ---
PT COMPLAINS 10/10 PAIN MEDICATIONS GIVEN PER MD ORDER. PT EDUCATED AND VERBALIZED UNDERSTANDING. PT TOLERATED WELL. CALL LIGHT IS WITHIN REACH. ALL SAFETY MEASURES ARE IN PLACE. NO S/S OF DISTRESS .
[2021-04-21] MEDS: ONDANSETRON 4 MG/2 ML VIAL IVP PRN (19:00)
--- NOTE | 2021-04-21 19:12 | NUR ---
PT ENDORSED TO TUBE BUILDER AIRPLANE RN. ZOFRAN GIVEN FOR N/V
--- NOTE | 2021-04-21 19:12 | NUR ---
RECEIVED PATIENT FROM AM SHIFT NURSE FOR CONTINUITY OF CARE. ALERT AND ABLE TO MAKE NEEDS KNOWN. RESPIRATIONS EVEN, UNLABORED. NO S/S RESPIRATORY DISTRESS. SKIN WARM, DRY. IV SITE TO RIGHT FOREARM 22G PATENT/INTACT, INFUSING FLUIDS WELL. NO C/O PAIN. NO S/S ACUTE DISTRESS. ABDOMEN SOFT, NONTENDER, NONTENDER. BOWEL SOUNDS ACTIVE x4 QUADRANTS. CONTINENT OF B/B. PLAN OF CARE DISCUSSED. CALL LIGHT WITHIN REACH AT ALL TIMES.
[2021-04-21 20:00] VITALS: BP 106/88
--- NOTE | 2021-04-21 21:00 | NUR ---
DUE MEDS GIVEN. NO S/S RESPIRATORY DISTRESS. NO C/O PAIN. NO S/S ACUTE DISTRESS. CALL LIGHT WITHIN REACH AT ALL TIMES.
--- NOTE | 2021-04-21 23:00 | NUR ---
PATIENT RESTING COMFORTABLY IN BED. NO S/S RESPIRATORY DISTRESS. NO C/O PAIN. NO S/S ACUTE DISTRESS. CALL LIGHT WITHIN REACH AT ALL TIMES.
[2021-04-22] VITALS: BP 99/60
[2021-04-22] MEDS: ALBUTEROL SULFATE/IPRATROPIU 3 ML SOL IH PRN (00:48)
--- NOTE | 2021-04-22 01:00 | NUR ---
MADE ROUNDS. PATIENT ASLEEP. NO S/S ACUTE DISTRESS. CALL LIGHT WITHIN REACH AT ALL TIMES.
[2021-04-22] MEDS: HYDROmorphone 2 MG TAB PO PRN (03:28)
--- NOTE | 2021-04-22 03:32 | NUR ---
MEDICATED FOR PAIN ORDERED.
[2021-04-22 04:00] VITALS: BP 104/59
[2021-04-22] MEDS: ONDANSETRON 4 MG/2 ML VIAL IVP PRN ×2 (04:37→18:15)
--- NOTE | 2021-04-22 05:36 | NUR ---
PATIENT ASLEEP. NO S/S ACUTE DISTRESS. CALL LIGHT WITHIN REACH.
[2021-04-22 06:55] LABS: BASOPHILS % (AUTO) 0.2 % (0.0-2.0); EOSINOPHILS % (AUTO) 0.2 % (0.0-4.0); HEMATOCRIT 27.8 % (36-48); LYMPHOCYTES # (AUTO) 1.3 K/uL (2.5-16.5); LYMPHOCYTES % (AUTO) 19.9 % (20.5-51.1); MEAN CORPUSCULAR HEMOGLOBIN 27 pg (27-31); MEAN CORPUSCULAR HGB CONC 32 g/dL (33-37); MEAN CORPUSCULAR VOLUME 83.1 fL (80-94); MONOCYTES # (AUTO) 0.4 K/uL (0.8-1.0); MONOCYTES % (AUTO) 6.6 % (1.7-9.3); NEUTROPHILS # (AUTO) 4.6 K/uL (1.8-7.7); NEUTROPHILS % (AUTO) 73.1 % (42.2-75.2); PLATELET COUNT (AUTO) 196 K/uL (140-450); RED BLOOD CELL COUNT(AUTO) 3.34 MIL/uL (4.20-5.40); RED CELL DISTRIBUTION WIDTH 20.5 % (11.6-13.7); WHITE BLOOD COUNT (AUTO) 6.3 K/uL (4.8-10.8)
[2021-04-22 07:06] LABS: MAGNESIUM 1.7 mg/dL (1.8-2.4); PHOSPHORUS 3.4 mg/dL (2.5-4.9)
[2021-04-22 07:17] LABS: ANION GAP 9.2 (8-16); CARBON DIOXIDE 27.3 mmol/L (21-32); CREATININE 0.4 mg/dL (0.6-1.3); POTASSIUM 3.5 mmol/L (3.5-5.1)
[2021-04-22] MEDS: ALBUTEROL SULFATE/IPRATROPIU 3 ML SOL IH SCH ×3 (07:19→19:59)
[2021-04-22] MEDS: BUDESONIDE 0.5 MG/2 ML NEBU INH SCH ×2 (07:19→19:59)
--- NOTE | 2021-04-22 07:30 | NUR ---
RECEIVED PATIENT FROM credit controller NURSE. AOX4, ABLE TO MAKE NEEDS KNOWN. NO C/O PAIN AT THIS TIME, RESPIRATIONS EVEN AND UNLABORED, SKIN WARM AND DRY. IV SITE RFA 22G INFUSING IVF. ABDOMEN SOFT, NONTENDER, NONTENDER. PLAN OF CARE DISCUSSED, PT VERBALIZED UNDERSTANDING. CALL LIGHT WITHIN REACH. WILL CONTINUE TO MONITOR
[2021-04-22 08:00] VITALS: BP 100/54
[2021-04-22] MEDS: predniSONE 20 MG TAB PO SCH (08:30)
[2021-04-22] MEDS: PYRIDOSTIGMINE 60 MG TAB PO SCH ×4 (08:30→20:42)
[2021-04-22] MEDS: carvediloL 3.125 MG TAB PO SCH (08:30)
[2021-04-22] MEDS: DOCUSATE SODIUM 100 MG GELCAP PO SCH (08:30)
[2021-04-22] MEDS: APIXABAN 2.5 MG TAB PO SCH ×2 (08:30→20:41)
--- NOTE | 2021-04-22 08:30 | NUR ---
DUE MORNING MEDS GIVEN ORDERED
--- NOTE | 2021-04-22 11:27 | NUR ---
PT RESTING IN BED AT THIS TIME. NO C/O PAIN, NO SOB
[2021-04-22 12:00] VITALS: BP 94/63
[2021-04-22] MEDS: MUPIROCIN CA NASAL 2% 1GM TUBE NS SCH (12:33)
[2021-04-22] MEDS: CHLORHEXADINE GLUC 2% CLOTH TP SCH (12:33)
--- NOTE | 2021-04-22 14:15 | NUR ---
PT RESTING IN BED. ASSISTED IN USING BEDPAN. NO C/O PAIN, NO SOB
[2021-04-22 16:00] VITALS: BP 113/76
--- NOTE | 2021-04-22 16:00 | NUR ---
IG INFUSION STARTED. NO COMPLAINTS AT THIS TIME
[2021-04-22] MEDS: IMMUNE GLOBULIN IV SCH (16:48)
[2021-04-22] MEDS: PANTOPRAZOLE 40 MG TABEC PO SCH (17:01)
--- NOTE | 2021-04-22 17:57 | NUR ---
IG INFUSION STILL RUNNING. NO C/O PAIN, RESPIRATIONS ARE EVEN AND UNLABORED
[2021-04-22] MEDS: HYDROmorphone 1 MG/ML AMP IVP PRN (18:15)
--- NOTE | 2021-04-22 18:15 | NUR ---
WITH C/O SEVERE HEADACHE 07/01. DILAUDID GIVEN ORDERED
--- NOTE | 2021-04-22 19:10 | NUR ---
RECEIVED BEDSIDE ENDORSEMENT FROM AM SHIFT RN. PATIENT IS AAOX4, ON ROOM AIR, TALKING ON THE CELLPHONE, NO DISTRESS, RESPIRATION EVEN AND UNLABORED, IMMUNOGLOBULIN INFUSING, SAFETY MEASURES IN PLACE, PLAN OF CARE DISCUSSED, WILL CONTINUE TO MONITOR, CALL LIGHT WITHIN REACH.
[2021-04-22 20:00] VITALS: BP 101/65
[2021-04-22] MEDS: HYDROcodone/APAP 5/325 MG 1 TAB TAB PO PRN (20:52)
[2021-04-22] MEDS: MAGNESIUM OXIDE 400 MG TAB PO PRN (20:53)
--- NOTE | 2021-04-22 21:00 | NUR ---
PATIENT IS AWAKE, DUE MEDS GIVEN ORDERED, MED EDUCATION PROVIDED, TOLERATED WELL, CALL LIGHT WITHIN REACH.
[2021-04-23] VITALS: BP 118/61
--- NOTE | 2021-04-23 | NUR ---
ASSISTED PATIENT IN USING THE BEDPAN, PATIENT HAD A BM, SOFT, PERINEAL CARE RENDERED, TOLERATED WELL, KEPT CLEAN, DRY AND COMFORTABLE, CALL LIGHT WITHIN REACH.
[2021-04-23] MEDS: ALBUTEROL SULFATE/IPRATROPIU 3 ML SOL IH PRN (01:26)
--- NOTE | 2021-04-23 02:00 | NUR ---
ASLEEP, NOTED CHEST RISE, CALL LIGHT WITHIN REACH.
[2021-04-23 04:00] VITALS: BP 93/57
--- NOTE | 2021-04-23 04:00 | NUR ---
V/S TAKEN, KEPT COMFORTABLE, CALL LIGHT WITHIN REACH.
[2021-04-23 06:17] LABS: BASOPHILS % (AUTO) 0.3 % (0.0-2.0); EOSINOPHILS % (AUTO) 0.4 % (0.0-4.0); HEMATOCRIT 24.7 % (36-48); LYMPHOCYTES # (AUTO) 1.1 K/uL (2.5-16.5); MEAN CORPUSCULAR HEMOGLOBIN 27 pg (27-31); MEAN CORPUSCULAR HGB CONC 32 g/dL (33-37); MEAN CORPUSCULAR VOLUME 83.9 fL (80-94); MONOCYTES # (AUTO) 0.3 K/uL (0.8-1.0); MONOCYTES % (AUTO) 7.7 % (1.7-9.3); NEUTROPHILS # (AUTO) 2.9 K/uL (1.8-7.7); NEUTROPHILS % (AUTO) 66.6 % (42.2-75.2); PLATELET COUNT (AUTO) 168 K/uL (140-450); RED BLOOD CELL COUNT(AUTO) 2.94 MIL/uL (4.20-5.40); RED CELL DISTRIBUTION WIDTH 20.4 % (11.6-13.7); WHITE BLOOD COUNT (AUTO) 4.4 K/uL (4.8-10.8)
[2021-04-23 06:27] LABS: ANION GAP 9.4 (8-16); CARBON DIOXIDE 28.1 mmol/L (21-32); CREATININE 0.4 mg/dL (0.6-1.3); POTASSIUM 3.5 mmol/L (3.5-5.1)
[2021-04-23 06:32] LABS: MAGNESIUM 1.6 mg/dL (1.8-2.4)
[2021-04-23] MEDS: ALBUTEROL SULFATE/IPRATROPIU 3 ML SOL IH SCH ×3 (07:25→19:16)
[2021-04-23] MEDS: BUDESONIDE 0.5 MG/2 ML NEBU INH SCH ×2 (07:25→19:17)
--- NOTE | 2021-04-23 07:25 | NUR ---
RECEIVED REPORT FOR CENTRAL OFFICE EQUIPMENT INSTALLER RN FOR CONTINUITY OF CARE. AOX4, RESTING IN BED, ABLE TO MAKE NEEDS KNOWN. SR ON MONITOR. ON RA. VITAL SIGNS STABLE. CONTINENT, ABLE TO ABLE TO ASK FOR BED HILL. IV CLEAN, DRY, AND INTACT, ON RH 22 G AND LH 22G INFUSING NS TKO. SCABS ON SACRUM DRY, CLOSED, AND OPEN TO AIR. FITTING SUPERVISOR IN PLACE. SAFETY MEASURES IN PLACE. BED IN LOW POSITION, BED LOCKED. CALL LIGHT WITHIN REACH. WILL CONTINUE TO MONITOR.
--- NOTE | 2021-04-23 07:53 | NUR ---
PT HAD A BM, PERINEAL CARE RENDERED, PATIENT IS STABLE, NO DISTRESS, DENIES PAIN, ALL NEEDS ATTENDED, KEPT COMFORTABLE, CALL LIGHT WITHIN REACH, BEDSIDE ENDORSEMENT GIVEN TO AM SHIFT RN FOR CONTINUITY OF CARE.
[2021-04-23 08:00] VITALS: BP 106/69
[2021-04-23] MEDS: DOCUSATE SODIUM 100 MG GELCAP PO SCH ×2 (09:00→09:41)
[2021-04-23] MEDS: HYDROmorphone 1 MG/ML AMP IVP PRN ×4 (09:41→21:55)
[2021-04-23] MEDS: predniSONE 20 MG TAB PO SCH (09:42)
[2021-04-23] MEDS: PANTOPRAZOLE 40 MG TABEC PO SCH (09:42)
[2021-04-23] MEDS: APIXABAN 2.5 MG TAB PO SCH ×2 (09:42→20:59)
[2021-04-23] MEDS: PYRIDOSTIGMINE 60 MG TAB PO SCH ×4 (09:42→21:00)
[2021-04-23] MEDS: carvediloL 3.125 MG TAB PO SCH (09:42)
--- NOTE | 2021-04-23 09:45 | NUR ---
ADMINISTERED SCHEDULED AM MEDICATIONS. ORAL CARE, HYGIENE CARE, AND CHG BATH PROVIDED. PATIENT IS IN NO SIGNS OF DISTRESS OR PAIN. ABLE TO MAKE NEEDS KNOWN. CALL LIGHT WITHIN REACH. WILL CONTINUE TO MONITOR.
--- NOTE | 2021-04-23 11:10 | NUR ---
PATIENT IS IN NO SIGNS OF DISTRESS OR PAIN. ABLE TO MAKE NEEDS KNOWN. CALL LIGHT WITHIN REACH. WILL CONTINUE TO MONITOR.
--- NOTE | 2021-04-23 11:15 | NUR ---
LIBORIO OFFSET PLATEMAKER: SPOKE TO SHANNA AT [facility], PATIENT CAME FROM THEIR FACILITY HOWEVER ON WEDNESDAY PATIENT CALLED [phone] HERSELF. PER SHANNA THEY ARE ABLE TO TAKE PATIENT BACK.
[2021-04-23 12:00] VITALS: BP 98/58
[2021-04-23] MEDS: CHLORHEXADINE GLUC 2% CLOTH TP SCH (12:06)
[2021-04-23] MEDS: MUPIROCIN CA NASAL 2% 1GM TUBE NS SCH (12:06)
--- NOTE | 2021-04-23 13:49 | NUR ---
WOUND CARE NOTE: SKIN ASSESSMENT DONE WITH THIS PT. AAX4 NO OPEN WOUND. MULTIPLE SKIN TO BOTH ARMS WITH LARGEST TO LEFT WRIST 0.5X0.5 AND RIGHT UPPER BUTTOCK 0.5X0.5CM. POC DISCUSSED WITH PRIMARY RN AND PT. PT. VERBALIZES UNDERSTANDING. -PAINT MULTIPLE SCABS WITH BETADINE SOLUTION BID AND LITHOGRAPHIC PLATE MAKER APPRENTICE -TURN AND REPOSITION PATIENT Q 2H -ASSESS AND MONITOR SKIN CONDITION DURING POSITION CHANGE -OFFLOAD BILATERAL HEELS BY PLACING PILLOWS UNDER CALVES AT ALL TIMES, UNLESS OTHERWISE CONTRAINDICATED -PRESSURE REDISTRIBUTION BY PLACING PILLOWS AND OFFLOADING SACRALCOCCYX -KEEP SKIN CLEAN AND DRY AT ALL TIMES.
--- NOTE | 2021-04-23 15:53 | NUR ---
PATIENT IS IN NO SIGNS OF DISTRESS OR PAIN. ABLE TO MAKE NEEDS KNOWN. CALL LIGHT WITHIN REACH. PATIENT REQUESTED ANTIDIARRHEA MEDICATIONS, SHE IS WORRIED THAT SHE WILL HER SKIN WILL BREAK DOWN. DR. SHAIKH GASTELUM, AWAITING CALL BACK. WILL CONTINUE TO MONITOR.
[2021-04-23 16:00] VITALS: BP 109/70
[2021-04-23] MEDS: IMMUNE GLOBULIN IV SCH ×2 (16:03→16:20)
--- NOTE | 2021-04-23 16:25 | NUR ---
REMOVED IV ON LEFT HAND PER PATIENT REQUEST. PATIENT STATES, "IT IS REALLY HURTING". WILL CONTINUE TO MONITOR.
[2021-04-23] MEDS: ONDANSETRON 4 MG/2 ML VIAL IVP PRN (17:30)
--- NOTE | 2021-04-23 19:16 | NUR ---
ENDORSED CARE TO GÉNESIS RN FOR CONTINUITY OF CARE.
--- NOTE | 2021-04-23 19:17 | NUR ---
RECEIVED BEDSIDE ENDORSEMENT FROM AM SHIFT RN. PATIENT IS AAOX4, ON ROOM AIR, NO DISTRESS, DENIES PAIN, SAFETY MEASURES IN PLACE, PLAN OF CARE DISCUSSED, WILL CONTINUE TO MONITOR, CALL LIGHT WITHIN REACH.
[2021-04-23 20:00] VITALS: BP 101/69
--- NOTE | 2021-04-23 21:07 | NUR ---
PATIENT IS WATCHING ON HER CELLPHONE, DUE MEDS GIVEN ORDERED, NO A/R NOTED, TOLERATED WELL, CALL LIGHT WITHIN REACH.
--- NOTE | 2021-04-24 00:05 | NUR ---
PATIENT IS ASLEEP, EASILY AROUSABLE TO VERBAL, NOTED CHEST RISE, CALL LIGHT WITHIN REACH.
--- NOTE | 2021-04-24 01:05 | NUR ---
RECEIVED CALL FROM THAT PT WAS REQUESTING A BREATHING TREATMENT. PT WAS NOT IN DISTRESS, I ADMINISTERED THE TREATMENT, PT TOLERATED WELL, WILL CONTINUE TO MONITOR
[2021-04-24] MEDS: GAUZE TP SCH ×2 (01:12→13:08)
[2021-04-24] MEDS: ALBUTEROL SULFATE/IPRATROPIU 3 ML SOL IH PRN (02:24)
--- NOTE | 2021-04-24 03:18 | NUR ---
ASLEEP, RESPIRATION EVEN AND UNLABORED, CALL LIGHT WITHIN REACH.
[2021-04-24] MEDS: HYDROmorphone 1 MG/ML AMP IVP PRN ×3 (03:33→16:32)
[2021-04-24 04:00] VITALS: BP 95/56
--- NOTE | 2021-04-24 04:00 | NUR ---
V/S TAKEN AND RECORDED, CALL LIGHT WITHIN REACH.
[2021-04-24] MEDS: MAGNESIUM OXIDE 400 MG TAB PO PRN ×2 (05:35→13:11)
[2021-04-24] MEDS: ALBUTEROL SULFATE/IPRATROPIU 3 ML SOL IH SCH ×3 (07:09→19:19)
[2021-04-24] MEDS: BUDESONIDE 0.5 MG/2 ML NEBU INH SCH ×2 (07:09→19:19)
--- NOTE | 2021-04-24 07:42 | NUR ---
PATIENT IS STABLE, NO DISTRESS, ALL NEEDS ATTENDED, KEPT COMFORTABLE, CALL LIGHT WITHIN REACH, BEDSIDE ENDORSEMENT GIVEN TO AM SHIFT RN.
--- NOTE | 2021-04-24 07:43 | NUR ---
PATIENT LYING IN BED SLEEPING, AROUSABLE BY VOICE. NO DISTRESS NOTED. ON ROOM AIR, AAOX4, CALM, COOPERATIVE, APPROPRIATE AFFECT. IV SITE INTACT, PATENT, AND INFUSING IVF PER MD ORDERS. HAS SACRAL SCAB, DRESSING IN PLACE. REVIEWED PLAN OF CARE WITH PATIENT. PATIENT VERBALIZED UNDERSTANDING. SAFETY MEASURES IN PLACE, CALL LIGHT WITHIN REACH. WILL CONTINUE TO MONITOR.
[2021-04-24 08:00] VITALS: BP 137/78
[2021-04-24] MEDS: DOCUSATE SODIUM 100 MG GELCAP PO SCH ×2 (09:00→09:06)
[2021-04-24] MEDS: carvediloL 3.125 MG TAB PO SCH (09:05)
[2021-04-24] MEDS: APIXABAN 2.5 MG TAB PO SCH (09:06)
[2021-04-24] MEDS: PYRIDOSTIGMINE 60 MG TAB PO SCH ×3 (09:06→16:08)
[2021-04-24] MEDS: predniSONE 20 MG TAB PO SCH (09:07)
[2021-04-24] MEDS: PANTOPRAZOLE 40 MG TABEC PO SCH (09:07)
[2021-04-24 09:16] LABS: BASOPHILS % (AUTO) 0.3 % (0.0-2.0); EOSINOPHILS % (AUTO) 0.3 % (0.0-4.0); HEMATOCRIT 25.8 % (36-48); HEMOGLOBIN 8.3 g/dL (12.0-16.0); LYMPHOCYTES # (AUTO) 1.2 K/uL (2.5-16.5); LYMPHOCYTES % (AUTO) 25.5 % (20.5-51.1); MEAN CORPUSCULAR HEMOGLOBIN 27 pg (27-31); MEAN CORPUSCULAR HGB CONC 32 g/dL (33-37); MONOCYTES # (AUTO) 0.4 K/uL (0.8-1.0); MONOCYTES % (AUTO) 8.7 % (1.7-9.3); NEUTROPHILS % (AUTO) 65.2 % (42.2-75.2); PLATELET COUNT (AUTO) 179 K/uL (140-450); RED CELL DISTRIBUTION WIDTH 20.5 % (11.6-13.7); WHITE BLOOD COUNT (AUTO) 4.6 K/uL (4.8-10.8)
[2021-04-24 09:18] LABS: ANION GAP 6.2 (8-16); CARBON DIOXIDE 31.2 mmol/L (21-32); CREATININE 0.5 mg/dL (0.6-1.3); POTASSIUM 3.4 mmol/L (3.5-5.1)
[2021-04-24 09:22] LABS: MAGNESIUM 1.7 mg/dL (1.8-2.4); PHOSPHORUS 2.8 mg/dL (2.5-4.9)
--- NOTE | 2021-04-24 09:35 | NUR ---
PATIENT COMPLAINS OF LOW BACK PAIN, DILAUDID GIVEN AT THIS TIME. OTHER SCHEDULED MEDICATIONS DUE GIVEN. WILL CONTINUE TO MONITOR.
--- NOTE | 2021-04-24 11:40 | NUR ---
PATIENT LYING DOWN IN BED WATCHING TV. NO DISTRESS NOTED. DENIES PAIN. WILL CONTINUE TO MONITOR.
[2021-04-24] MEDS ORDERED: POTASSIUM CHLORIDE 20% 40 MEQ/15 ML UDC PO SCH (12:45)
[2021-04-24] MEDS: MUPIROCIN CA NASAL 2% 1GM TUBE NS SCH (13:08)
[2021-04-24] MEDS: CHLORHEXADINE GLUC 2% CLOTH TP SCH (13:08)
--- NOTE | 2021-04-24 13:14 | NUR ---
SCHEDULED MEDICATIONS DUE GIVEN. WILL CONTINUE TO MONITOR.
[2021-04-24 16:00] VITALS: BP 138/75
[2021-04-24] MEDS: IMMUNE GLOBULIN IV SCH (16:08)
--- NOTE | 2021-04-24 16:28 | NUR ---
DISCHARGE PLANNING Order for dc, per charge nurse for SNF. Pt came from [facility]. Called & spoke with Pooja at [facility], ph [phone] fax [phone], faxed order & pt information. Spoke with pt at bedside and states that will not go to any SNF is going home. States that lives with 2 sons & they will be able to assist her at home. Has walker with a seat, & was walking with walker with min assist prior to admission. Pt moving around in bed freely, per nurse has not been out of bed & no PT. Per pt son has helped her get back to walking in past & will be home to get her up to walk. Per pt both sons at home, do not work, & will have someone with her 14/06. Per pt she has already discussed with sons & they want her home. Gave me correct address & ph #s. Informed charge nurse & calling Md to inform and get a home health order. Called & updated Pooja at [facility], gave her correct address,pt's cell & son's ph #s. States will get home health for RN home safety evky. Will call pt. Updated charge nurse. ADDRESS:[address] [place] [address], [id number] [address] Aleksandar Miramontes(son)[phone] Deniz Miramontes(son)[phone] Addendum: 04/24/21 at 1641 by Rima Campbell CM Order for home health, faxed to Pooja at [facility].
--- NOTE | 2021-04-24 16:34 | NUR ---
PATIENT COMPLAINS OF PAIN, DILAUDID GIVEN AT THIS TIME. SCHEDULED MEDICATIONS DUE GIVEN. WILL CONTINUE TO MONITOR.
--- NOTE | 2021-04-24 16:46 | NUR ---
SPOKE WITH PT REGARDING HER TRANSPORTATION GOING HOME, PT STATED SHE ALREADY ARRANGED A FRIEND TO PICK HER UP FROM THE HOSPITAL AND DRIVE HER HOME TONIGHT AROUND 7PM. RENA ASSIGNED MADE AWARE.
[2021-04-24] MEDS: ONDANSETRON 4 MG/2 ML VIAL IVP PRN (17:37)
--- NOTE | 2021-04-24 19:23 | NUR ---
GAVE REPORT TO BOTTLE TESTER NURSE FOR CONTINUITY OF CARE. PATIENT IN STABLE CONDITION.
--- NOTE | 2021-04-24 19:24 | NUR ---
RECEIVED BEDSIDE ENDORSEMENT FROM AM SHIFT RN. PATIENT IS AAOX4, ON ROOM AIR, RH 24, INTACT, DENIES PAIN, PATIENT DISCHARGE ORDERS WERE EXPLAINED BY ALTAF HOYOS TO THE PATIENT, WAITING FOR PATIENT'S FRIENDS TO APPLICATION DESIGNER THE PATIENT, SAFETY MEASURES IN PLACE, CALL LIGHT WITHIN REACH.
[2021-04-24 20:00] VITALS: BP 131/93
[2021-04-24] MEDS: HYDROcodone/APAP 5/325 MG 1 TAB TAB PO PRN (20:09)
--- NOTE | 2021-04-24 20:09 | NUR ---
PATIENT HAVE FLU & PNA VACCINES 08/2020
--- NOTE | 2021-04-24 20:09 | NUR ---
PATIENT'S FRIEND IS HERE, WENT TO PT ROOM, C/O PAIN 03/31, NORCO GIVEN ORDERED, PRN FOR PAIN, GAVE THE D/C PAPERS TO THE PATIENT W/ CD. ANSWERED ALL QUESTIONS, VERBALIZED UNDERSTANDING. PATIENT WAS THANKFUL, ALL BELONGINGS GIVEN TO PATIENT, V/S TAKEN, WNL, TRANSFERRED SAFELY FROM BED TO WHEELCHAIR, SURG MASK GIVEN TO PATIENT. WHEELED OUTSIDE THE BUILDING BY MY CHARGE NURSE. Addendum: 04/24/21 at 2221 by Kenyatta La RN ADDENDUM: LEFT THE HOSPITAL BUILDING AT 2024.
--- NOTE | 2021-04-24 20:20 | NUR ---
PT SAID THE PAIN DECREASED TO 12/01. TOLERABLE. PT LEFT THE BUILDING AT 2024.
== END 2021-04-24 20:25 | DRG 57 ==
LOC: MED 18:37 → MTU 04-20 01:27
PROVIDERS: ADMIT Internal Medicine; ATTEND Internal Medicine
DX: G70.01 Myasthenia gravis with (acute) exacerbation (principal); N39.0 Urinary tract infection, site not specified; Z20.822 Contact with and (suspected) exposure to COVID-19; Z88.8 Allergy status to other drugs, medicaments and biological substances; I48.91 Unspecified atrial fibrillation; Z79.899 Other long term (current) drug therapy; R13.10 Dysphagia, unspecified
CPT/HCPCS: 36415; 36600; 71045; 80048; 80053; 81001; 82803; 83735; 83880; 84100; 84484; 85025; 85610; 85730; 87040; 87081; 87086; 90283; 93005; 94640; 96365; 96375; 96376; 99291; J0696; J1170; J1650; J2270; J2405; J2920; J7060; J7512; J7626